=== PATIENT | female | born 1945 | race Two or more races ===

== ENCOUNTER 2017-05-17 18:57 | Emergency (ER) | payer MEDICARE, OTHER ==
[2017-05-17 19:22] VITALS: BP 130/99
--- NOTE | 2017-05-17 19:29 | EDM.PDOC ---
ED HPI GENERAL MEDICAL PROBLEM - General Chief Complaint: Gastrointestinal Problem Stated Complaint: DIARRHEA Time Seen by Provider: 05/17/17 19:15 Source of Information: Reports: Patient History Limitations: Reports: No Limitations - History of Present Illness INITIAL COMMENTS - FREE TEXT/NARRATIVE: 72 yo sent from the walk-in clinic to the ER for diarrhea x 5 today. No fever or vomiting. Not dizzy with standing. No pain. There was a small amt of blood in the stool once. No known exposures. Onset: Today Onset Date: 05/17/17 Onset Time: 09:00 Duration: Hour(s): Location: Reports: Abdomen Quality: Reports: Other (minimal cramping) Severity: Mild Improves with: Reports: None Worsens with: Reports: None Context: Reports: Other (Patient worried about food poisoning) Associated Symptoms: Denies: Fever/Chills, Nausea/Vomiting Treatments RESIDENTIAL DIRECT SUPPORT PROFESSIONAL: Reports: Other (see below) (none) Abdomen Pain Score (Numeric/FACES): 9 - Related Data Allergies Allergy/AdvReac Type Severity Reaction Status Date / Time No Known Allergies Allergy Verified 05/17/17 19:11 Home Meds: Home Meds Levothyroxine 75 mcg PO DAILY 02/12/14 [History] cycloSPORINE [Restasis] 1 drop EYEBOTH BID 02/12/14 [History] Albuterol Sulfate [Proair Hfa] 2 puff INH Q6HR PRN 04/29/16 [History] Cetirizine [ZyrTEC] 10 mg PO DAILY 04/29/16 [History] Docusate Sodium [Stool Softener] 100 mg PO DAILY PRN 04/29/16 [History] Fluticasone Propionate [Flovent] 1 sprays NASBOTH DAILY 04/29/16 [History] Fluticasone/Salmeterol [Advair 250-50 Diskus] 1 puff INH DAILY PRN 04/29/16 [ History] PHENobarbital [Phenobarbital] 100 mg PO BID 04/29/16 [History] Vit D 400 Units 400 units PO DAILY 04/29/16 [History] Betamethasone/Clotrimazole [Lotrisone] 15 gm TOP BID PRN 08/25/16 [History] LORazepam [Ativan] 1 mg PO Q6HR PRN #10 tablet 08/25/16 [Rx] Metoprolol Tartrate 12.5 mg PO BID 08/25/16 [History] Nitroglycerin 0.4 mg SL ASDIRECTED 08/25/16 [History] Triamcinolone Acetonide [Triamcinolone Acetonide 0.1% Crm] 1 applic TOP BID PRN 08/25/16 [History] atorvaSTATin Calcium [Atorvastatin Calcium] 20 mg PO DAILY 08/25/16 [History] Past Medical History HEENT History: Reports: Cataract, Impaired Vision Cardiovascular History: Reports: Hypertension, SOB on Exertion Respiratory History: Reports: Asthma 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: Musculoskeletal History: Reports: Arthritis, Fracture, RA Neurological History: Reports: Migraines, Seizure Psychiatric History: Reports: Depression Endocrine/Metabolic History: Reports: Hyperthyroidism, Osteopenia - Infectious Disease History Infectious Disease History: Reports: Measles, Shingles - Past Surgical History Female Surgical History: Reports: Hysterectomy, Salpingo-Oophorectomy Musculoskeletal Surgical History: Reports: Other (See Below) Social & Family History - Family History Family Medical History: Noncontributory - Tobacco Use Smoking Status *Q: Never Smoker Second Hand Smoke Exposure: No - Caffeine Use Caffeine Use: Reports: Coffee, Soda - Alcohol Use Days Per Week of Alcohol Use: 0 - Recreational Drug Use Recreational Drug Use: No ED ROS GENERAL - Review of Systems Review Of Systems: See Below Constitutional: Reports: No Symptoms HEENT: Reports: No Symptoms Respiratory: Reports: No Symptoms Cardiovascular: Reports: No Symptoms Endocrine: Reports: No Symptoms GI/Abdominal: Reports: Diarrhea, Hematochezia (minimal). Denies: Abdominal Pain , Anorexia, Black Stool, Bloody Stool, Constipation, Distension, Hematemesis, Melena, Nausea, Vomiting : Reports: No Symptoms Musculoskeletal: Reports: No Symptoms Skin: Reports: No Symptoms Neurological: Reports: No Symptoms Psychiatric: Reports: No Symptoms ED EXAM, GI/ABD - Physical Exam Exam: See Below Exam Limited By: No Limitations General Appearance: Alert, WD/WN, No Apparent Distress Eyes: Bilateral: Normal Appearance Ears: Normal External Exam, Normal Canal, Hearing Grossly Normal, Normal TMs Nose: Normal Inspection, Normal Mucosa, No Blood Throat/Mouth: Normal Inspection, Normal Lips, Normal Oropharynx, Normal Voice, No Airway Compromise Head: Atraumatic, Normocephalic Neck: Normal Inspection Respiratory/Chest: No Respiratory Distress, Lungs Clear, Normal Breath Sounds, No Accessory Muscle Use Cardiovascular: Regular Rate, Rhythm, No Edema GI/Abdominal Exam: Normal Bowel Sounds, Soft, Non-Tender, No Distention Back Exam: Normal Inspection. No: CVA Tenderness (R), CVA Tenderness (L) Extremities: Normal Inspection, Normal Range of Motion, Non-Tender, No Pedal Edema Neurological: Alert, Oriented, CN II-XII Intact, Normal Cognition, No Motor/ Sensory Deficits Psychiatric: Normal Affect, Normal Mood Skin Exam: Warm, Dry, Intact, Normal Color, No Rash Lymphatic: No Adenopathy Course - Vital Signs Text/Narrative:: Orthostats- Last Recorded V/S: Last Vital Signs Temp 36.7 C 05/17/17 19:20 Pulse 81 05/17/17 19:20 Resp 16 05/17/17 19:20 BP 130/99 H 05/17/17 19:20 Pulse Ox 100 05/17/17 19:20 Orthostatic Blood Pressure [ 143/84 Standing] Orthostatic Blood Pressure [ 148/84 Sitting] Orthostatic Blood Pressure [ 161/79 Supine] - Orders/Labs/Meds Orders: Active Orders 24 hr Category Date Time Status Orthostatic Vital Signs [RC] ASDIRECTED Care 05/17/17 19:18 Active CDIFF TOXIN A+B GROUP [OP] Stat Lab 05/17/17 20:12 Uncollected CULTURE-STOOL [MREF] Stat Lab 05/17/17 19:18 Uncollected Labs: Laboratory Tests 05/17/17 05/17/17 Range/Units 19:25 19:25 WBC 9.3 (4.5-12.0) X10-3/uL RBC 3.73 (3.23-5.20) x10(6)uL Hgb 12.5 (11.5-15.5) g/dL Hct 36.2 (30.0-51.3) % MCV 97.2 H (80-96) fL MCH 33.5 (27.7-33.6) pg MCHC 34.5 (32.2-35.4) g/dL RDW 13.8 (11.5-15.5) % Plt Count 308 (125-369) X10(3)uL Sodium 127 L (135-145) mmol/L Potassium 3.8 (3.5-5.3) mmol/L Chloride 95 L (100-110) mmol/L Carbon Dioxide 24 (23-29) mmol/L BUN 14 (8-23) mg/dL Creatinine 0.9 (0.6-1.3) mg/dL Est Cr Clr Drug Dosing 39.99 mL/min Estimated GFR (MDRD) > 60 (>60) BUN/Creatinine Ratio 15.6 (9-20) Glucose 104 (80-116) mg/dL Calcium 8.8 (8.6-10.2) mg/dL Total Bilirubin 0.8 (0.1-1.3) mg/dL AST 11 D (5-27) IU/L ALT 11 L (14-26) IU/L Alkaline Phosphatase 126 H (56-112) IU/L Total Protein 9.7 H (6.0-8.0) g/dL Albumin 3.8 (3.2-4.6) g/dL Globulin 5.9 g/dL Albumin/Globulin Ratio 0.6 Departure - Departure Time of Disposition: 20:15 Disposition: Home, Self-Care 01 Condition: Fair Clinical Impression: Diarrhea, Hyponatremia - Discharge Information Referrals: Jorden Tamayo MD [Primary Care Provider] - Forms: ED Department Discharge Additional Instructions: Return a stool specimen for culture as soon as possible. Drink Gatorade to replace fluids and sodium. Eat a BRAT diet. Take acetaminophen as needed for pain relief. Take Peptobismol as directed on the bottle for diarrhea control. Recheck in the clinic on Tuesday afternoon to review your stool culture results. Return if worse. - My Orders Last 24 Hours: My Active Orders 05/17/17 19:18 Orthostatic Vital Signs [RC] ASDIRECTED CULTURE-STOOL [MREF] Stat 05/17/17 20:12 CDIFF TOXIN A+B GROUP [OP] Stat - Assessment/Plan Last 24 Hours: My Active Orders 05/17/17 19:18 Orthostatic Vital Signs [RC] ASDIRECTED CULTURE-STOOL [MREF] Stat 05/17/17 20:12 CDIFF TOXIN A+B GROUP [OP] Stat
== END 2017-05-17 20:35 | disposition home or self-care (01) ==
LOC: FB.ED 18:57
DX: R19.7 Diarrhea, unspecified (principal); E87.1 Hypo-osmolality and hyponatremia; I10 Essential (primary) hypertension; E05.90 Thyrotoxicosis, unspecified without thyrotoxic crisis or storm; J45.909 Unspecified asthma, uncomplicated; Z90.710 Acquired absence of both cervix and uterus; Z79.899 Other long term (current) drug therapy
CPT/HCPCS: 36415; 80053; 85027; 99283

== ENCOUNTER 2018-11-11 16:00 | Observation (INO) | payer MEDICARE, OTHER ==
[2018-11-11] MEDS ORDERED: Pantoprazole 40 MG Vial IVPUSH ONE (16:05)
[2018-11-11] MEDS ORDERED: Ondansetron 4 MG/2 ML SDV IVPUSH ONE (16:05)
[2018-11-11] MEDS ORDERED: Sodium Chloride 0.9% 1,000 ML IV ONE (16:07)
--- NOTE | 2018-11-11 16:08 | EDM.PDOC ---
ED HPI GENERAL MEDICAL PROBLEM - General Stated Complaint: VOMITTING BLOOD Time Seen by Provider: 11/11/18 16:00 Source of Information: Reports: Patient, EMS, Family History Limitations: Reports: Physical Impairment - History of Present Illness INITIAL COMMENTS - FREE TEXT/NARRATIVE: 73 y.o.w.f with a H/O Sz, and CAD with pacemaker in place, came by EMS to the ED due to Nausea and vomiting of blood. Pt did not pass out but feels very weak. She denies Liver disease, denies PUD. Denies vomiting coffee ground material. No C/P no SOB. no other acute med. issues. BP 114/65 RR 18 Pulse ox 98 % on RA Temp 36.6 Pulse Onset Date: 11/11/18 Onset Time: 15:00 Duration: Hour(s): Location: Reports: Abdomen Quality: Reports: Dull Severity: Moderate Improves with: Reports: Rest Worsens with: Reports: Movement Context: Reports: Other Associated Symptoms: Reports: Malaise, Nausea/Vomiting, Weakness - Related Data Allergies Allergy/AdvReac Type Severity Reaction Status Date / Time No Known Allergies Allergy Verified 11/11/18 16:05 Home Meds: Home Meds Levothyroxine 75 mcg PO DAILY 02/12/14 [History] cycloSPORINE [Restasis] 1 drop EYEBOTH BID 02/12/14 [History] Albuterol Sulfate [Proair Hfa] 2 puff INH Q6HR PRN 04/29/16 [History] Cetirizine [ZyrTEC] 10 mg PO DAILY 04/29/16 [History] Fluticasone Propionate [Flovent] 1 sprays NASBOTH BID 04/29/16 [History] Fluticasone/Salmeterol [Advair 250-50 Diskus] 1 puff INH DAILY PRN 04/29/16 [ History] PHENobarbital [Phenobarbital] 100 mg PO BID 04/29/16 [History] Metoprolol Tartrate 12.5 mg PO BID 08/25/16 [History] Nitroglycerin 0.4 mg SL ASDIRECTED 08/25/16 [History] atorvaSTATin Calcium [Atorvastatin Calcium] 20 mg PO DAILY 08/25/16 [History] Acetaminophen [Tylenol Extra Strength] 1,000 mg pe PO QID PRN 11/11/18 [History] Aspirin [Halfprin] 81 mg PO DAILY 11/11/18 [History] Cholecalciferol (Vitamin D3) [Vitamin D3] 1,000 units PO DAILY 11/11/18 [History ] Escitalopram [Lexapro] 30 mg PO BEDTIME 11/11/18 [History] Multivitamin [Daily Multiple Vitamin] 1 each PO DAILY 11/11/18 [History] Naproxen 500 mg PO BID PRN 11/11/18 [History] amLODIPine [Norvasc] 10 mg PO DAILY 11/11/18 [History] levETIRAcetam [Keppra] 500 mg PO BID 11/11/18 [History] Past Medical History HEENT History: Reports: Cataract, Impaired Vision Cardiovascular History: Reports: Hypertension, SOB on Exertion Respiratory History: Reports: Asthma 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: Musculoskeletal History: Reports: Arthritis, Fracture, RA Neurological History: Reports: Migraines, Seizure Psychiatric History: Reports: Depression Endocrine/Metabolic History: Reports: Hyperthyroidism, Osteopenia - Infectious Disease History Infectious Disease History: Reports: Measles, Shingles - Past Surgical History Female Surgical History: Reports: Hysterectomy, Salpingo-Oophorectomy Musculoskeletal Surgical History: Reports: Other (See Below) Social & Family History - Family History Family Medical History: Noncontributory - Caffeine Use Caffeine Use: Reports: Coffee, Soda ED ROS GENERAL - Review of Systems Review Of Systems: See Below Constitutional: Reports: Weakness, Weight Loss HEENT: Reports: No Symptoms Respiratory: Reports: No Symptoms Cardiovascular: Reports: No Symptoms Endocrine: Reports: No Symptoms GI/Abdominal: Reports: Abdominal Pain, Decreased Appetite, Hematemesis, Nausea, Vomiting : Reports: No Symptoms Musculoskeletal: Reports: No Symptoms Skin: Reports: Pallor Neurological: Reports: No Symptoms Psychiatric: Reports: No Symptoms Hematologic/Lymphatic: Reports: No Symptoms Immunologic: Reports: No Symptoms ED EXAM, GI/ABD - Physical Exam Exam: See Below Exam Limited By: Physical Impairment General Appearance: Alert, Moderate Distress, Cachetic Eyes: Bilateral: Normal Appearance Ears: Normal External Exam Nose: Normal Inspection Throat/Mouth: Normal Lips, Normal Voice, No Airway Compromise Head: Atraumatic, Normocephalic Neck: Normal Inspection, Supple, Non-Tender, Full Range of Motion Respiratory/Chest: No Respiratory Distress, Lungs Clear, Normal Breath Sounds, No Accessory Muscle Use, Chest Non-Tender Cardiovascular: Regular Rate, Rhythm, No Edema, No Rub GI/Abdominal Exam: Normal Bowel Sounds, Tender (Female) Exam: Deferred Rectal (Female) Exam: Deferred Back Exam: Normal Inspection, Full Range of Motion Extremities: Normal Inspection, Normal Range of Motion, Non-Tender, No Pedal Edema Neurological: Alert, Oriented, CN II-XII Intact, Normal Cognition, Abnormal Gait (too weak ) Psychiatric: Normal Affect, Normal Mood Skin Exam: Warm, Dry, Intact, No Rash, Pallor Lymphatic: No Adenopathy Course - Vital Signs Text/Narrative:: 73 y.o.w.f with a H/O Sz, and CAD with pacemaker in place, came by EMS to the ED due to Nausea and vomiting of blood. Pt did not pass out but feels very weak. She denies Liver disease, denies PUD. Denies vomiting coffee ground material. No C/P no SOB. no other acute med. issues. BP 114/65 RR 18 Pulse ox 98 % on RA Temp 36.6 Pulse PE: Weak, cachectic and pale 73 y.o.w.f Imaging: Not indicated Labs; HGB 8.6 HCT 25.5 BUN 40 Cr 1.0 Impression: Upper GI bleed, Anemia, Cachexia, CAD Tx: NS, 2 IVs, Protonix, Zofran. 4.49 pm Consultation: Dr. Toussaint, Surgeon, will pt in the ED. Dr. Toussaint will perform an upper endoscopy. Reexam: improved Plan: Admit to M/S to Hospitalist, NPO for today, Protonix drip. Last Recorded V/S: Last Vital Signs Temp 36.8 C 11/12/18 16:37 Pulse 81 11/12/18 16:37 Resp 16 11/12/18 16:37 BP 124/66 11/12/18 16:37 Pulse Ox 95 11/12/18 16:00 - Orders/Labs/Meds Labs: Laboratory Tests 11/11/18 11/11/18 11/11/18 Range/Units 16:25 16:25 16:25 WBC 5.8 (4.5-12.0) X10-3/uL RBC 2.54 L (3.23-5.20) x10(6)uL Hgb 8.6 L (11.5-15.5) g/dL Hct 25.2 L D (30.0-51.3) % MCV 98.9 H (80-96) fL MCH 33.9 H (27.7-33.6) pg MCHC 34.2 (32.2-35.4) g/dL RDW 13.6 (11.5-15.5) % Plt Count 235 (125-369) X10(3)uL MPV 6.3 L (7.4-10.4) fL Neut % (Auto) 74.0 (46-82) % Lymph % (Auto) 17.6 (13-37) % Motley % (Auto) 7.2 (4-12) % Eos % (Auto) 1 (1.0-5.0) % Baso % (Auto) 0 (0-2) % Neut # (Auto) 4.3 (1.6-8.3) # Lymph # (Auto) 1.0 (0.6-5.0) # Motley # (Auto) 0.4 (0.0-1.3) # Eos # (Auto) 0.1 (0.0-0.8) # Baso # (Auto) 0.0 (0.0-0.2) # PT 10.1 (8.7-11.1) INR 1.04 (0.89-1.13) Sodium 136 (135-145) mmol/L Potassium 4.1 (3.5-5.3) mmol/L Chloride 102 (100-110) mmol/L Carbon Dioxide 25 (21-32) mmol/L BUN 40 H (7-18) mg/dL Creatinine 1.0 (0.55-1.02) mg/dL Est Cr Clr Drug Dosing 35.45 mL/min Estimated GFR (MDRD) 54 L (>60) BUN/Creatinine Ratio 40.0 H (9-20) Glucose 90 (80-116) mg/dL Calcium 8.2 L (8.6-10.2) mg/dL Total Bilirubin 0.3 (0.1-1.3) mg/dL Direct Bilirubin 0.10 (0.10-0.20) mg/dL AST 43 H (5-25) IU/L ALT 34 (12-36) U/L Alkaline Phosphatase 105 (56-112) IU/L Total Protein 7.6 (6.0-8.0) g/dL Albumin 2.9 L (3.2-4.6) g/dL Amylase 99 (25-115) U/L Blood Type Gel Antibody Screen Crossmatch 11/11/18 Range/Units 16:25 WBC (4.5-12.0) X10-3/uL RBC (3.23-5.20) x10(6)uL Hgb (11.5-15.5) g/dL Hct (30.0-51.3) % MCV (80-96) fL MCH (27.7-33.6) pg MCHC (32.2-35.4) g/dL RDW (11.5-15.5) % Plt Count (125-369) X10(3)uL MPV (7.4-10.4) fL Neut % (Auto) (46-82) % Lymph % (Auto) (13-37) % Motley % (Auto) (4-12) % Eos % (Auto) (1.0-5.0) % Baso % (Auto) (0-2) % Neut # (Auto) (1.6-8.3) # Lymph # (Auto) (0.6-5.0) # Motley # (Auto) (0.0-1.3) # Eos # (Auto) (0.0-0.8) # Baso # (Auto) (0.0-0.2) # PT (8.7-11.1) INR (0.89-1.13) Sodium (135-145) mmol/L Potassium (3.5-5.3) mmol/L Chloride (100-110) mmol/L Carbon Dioxide (21-32) mmol/L BUN (7-18) mg/dL Creatinine (0.55-1.02) mg/dL Est Cr Clr Drug Dosing mL/min Estimated GFR (MDRD) (>60) BUN/Creatinine Ratio (9-20) Glucose (80-116) mg/dL Calcium (8.6-10.2) mg/dL Total Bilirubin (0.1-1.3) mg/dL Direct Bilirubin (0.10-0.20) mg/dL AST (5-25) IU/L ALT (12-36) U/L Alkaline Phosphatase (56-112) IU/L Total Protein (6.0-8.0) g/dL Albumin (3.2-4.6) g/dL Amylase (25-115) U/L Blood Type B POSITIVE Gel Antibody Screen Negative Crossmatch See Detail Meds: Medications Discontinued Medications Generic Name Dose Route Start Last Admin Trade Name Freq PRN Reason Stop Dose Admin Acetaminophen 1,000 mg 11/12/18 02:28 11/12/18 02:47 Tylenol Extra Strength PO 1,000 mg QID PRN Administration Headache Albuterol 0 gm 11/11/18 20:51 Ventolin Hfa INH Q6H PRN wheezing and SOB Amlodipine Besylate 10 mg 11/12/18 09:00 Norvasc PO DAILY NAYE Amlodipine Besylate 10 mg 11/12/18 09:45 11/12/18 09:48 Norvasc PO 10 mg DAILY NAYE Administration Atorvastatin Calcium 20 mg 11/12/18 09:00 11/12/18 09:52 Lipitor PO Not Given DAILY NAYE Cetirizine HCl 10 mg 11/12/18 09:00 11/12/18 09:48 Zyrtec PO 10 mg DAILY NAYE Administration Cholecalciferol 1,000 units 11/12/18 09:00 11/12/18 09:47 Vitamin D3 PO 1,000 units DAILY NAYE Administration Cyclosporine 0 each 11/11/18 21:00 11/12/18 09:52 Restasis EYEBOTH Not Given BID NAYE Escitalopram Oxalate 30 mg 11/11/18 21:00 11/11/18 21:40 Lexapro PO 30 mg BEDTIME NAYE Administration Fluticasone Propionate 0 gm 11/12/18 09:00 11/12/18 09:43 Flonase NASBOTH 2 spray DAILY NAYE Administration Sodium Chloride 1,000 mls @ 999 mls/hr 11/11/18 16:07 11/11/18 16:17 Normal Saline IV 11/11/18 17:07 999 mls/hr .BOLUS ONE Administration Lactated Ringer's 1,000 mls @ 125 mls/hr 11/11/18 17:30 11/11/18 17:32 Ringers, Lactated IV 125 mls/hr ASDIRECTED NAYE Administration Lactated Ringer's 1,000 mls @ 125 mls/hr 11/11/18 17:30 11/12/18 02:48 Ringers, Lactated IV 125 mls/hr ASDIRECTED NAYE Administration Pantoprazole Sodium 80 mg/ 100 mls @ 10 mls/hr 11/11/18 18:30 11/11/18 19:58 Sodium Chloride IV 10 mls/hr .Continuous NAYE Administration Sodium Chloride 250 mls @ 100 mls/hr 11/12/18 09:00 11/12/18 13:45 Normal Saline IV 100 mls/hr ASDIRECTED NAYE Administration Levetiracetam 500 mg 11/11/18 21:00 11/12/18 09:45 Keppra PO 500 mg BID NAYE Administration Levothyroxine Sodium 75 mcg 11/12/18 07:30 11/12/18 09:43 Levothyroxine PO 75 mcg ACBREAKFAST NAYE Administration Metoprolol Tartrate 12.5 mg 11/11/18 21:00 11/12/18 09:46 Lopressor PO 12.5 mg BID NAYE Administration Multivitamins/Minerals/Vitamin C 1 tab 11/12/18 09:00 Tab-A-Renee PO DAILY NAYE Non-Formulary Medication 1 sprays 11/11/18 21:00 11/11/18 22:13 Fluticasone Propionate [Flovent] NASBOTH Not Given BID NAYE Non-Formulary Medication 1 puff 11/11/18 20:51 Fluticasone/Salmeterol [Advair 250-50 Diskus] INH DAILY PRN Shortness of Breath Non-Formulary Medication 100 mg 11/11/18 21:00 11/11/18 22:13 Phenobarbital [Phenobarbital] PO Not Given BID NAYE Non-Formulary Medication 2 sprays 11/12/18 09:00 Fluticasone Propionate [Flovent] NASBOTH DAILY NAYE Phenobarbital 100 Mg 100 mg 11/11/18 21:45 11/12/18 09:47 TabOwn Med PO 100 mg BID NAYE Administration Centrum SilverOwn 1 each 11/12/18 09:45 11/12/18 09:48 Med PO 1 each DAILY NAYE Administration Ondansetron HCl 8 mg 11/11/18 16:05 11/11/18 16:21 Zofran IVPUSH 11/11/18 16:06 8 mg ONETIME ONE Administration Ondansetron HCl 8 mg 11/11/18 18:31 Zofran IV Q6H PRN Nausea/Vomiting Pantoprazole Sodium 80 mg 11/11/18 16:05 11/11/18 16:27 Protonix Iv IVPUSH 11/11/18 16:06 80 mg .BOLUS ONE Administration Phenobarbital 100 mg 11/11/18 21:15 11/11/18 22:13 Phenobarbital Elixir PO Not Given BID NAYE Sodium Chloride 10 ml 11/11/18 16:11 11/11/18 16:14 Saline Flush FLUSH 10 ml ASDIRECTED PRN Administration Keep Vein Open Departure - Departure Time of Disposition: 19:00 Disposition: Refer to Observation Condition: Fair Clinical Impression: PUD (peptic ulcer disease) - Discharge Information
[2018-11-11] MEDS ORDERED: Sodium Chloride 0.9% 10 ML Syringe FLUSH PRN (16:11)
--- NOTE | 2018-11-11 17:07 | PCM.CONS ---
H&P History of Present Illness - General Date of Service: 11/11/18 - History of Present Illness Initial Comments - Free Text/Narative: 73 yo f who was brought in by ems. had an episode of bloody emesis. No other sx. Hgb 8.9. Apparently has a hx of an upper gi bleeding in the past. - Related Data Allergies/Adverse Reactions: Allergies Allergy/AdvReac Type Severity Reaction Status Date / Time No Known Allergies Allergy Verified 11/11/18 16:05 Home Medications: Home Meds Levothyroxine 75 mcg PO DAILY 02/12/14 [History] cycloSPORINE [Restasis] 1 drop EYEBOTH BID 02/12/14 [History] Albuterol Sulfate [Proair Hfa] 2 puff INH Q6HR PRN 04/29/16 [History] Cetirizine [ZyrTEC] 10 mg PO DAILY 04/29/16 [History] Docusate Sodium [Stool Softener] 100 mg PO DAILY PRN 04/29/16 [History] Fluticasone Propionate [Flovent] 1 sprays NASBOTH DAILY 04/29/16 [History] Fluticasone/Salmeterol [Advair 250-50 Diskus] 1 puff INH DAILY PRN 04/29/16 [ History] PHENobarbital [Phenobarbital] 100 mg PO BID 04/29/16 [History] Vit D 400 Units 400 units PO DAILY 04/29/16 [History] Betamethasone/Clotrimazole [Lotrisone] 15 gm TOP BID PRN 08/25/16 [History] LORazepam [Ativan] 1 mg PO Q6HR PRN #10 tablet 08/25/16 [Rx] Metoprolol Tartrate 12.5 mg PO BID 08/25/16 [History] Nitroglycerin 0.4 mg SL ASDIRECTED 08/25/16 [History] Triamcinolone Acetonide [Triamcinolone Acetonide 0.1% Crm] 1 applic TOP BID PRN 08/25/16 [History] atorvaSTATin Calcium [Atorvastatin Calcium] 20 mg PO DAILY 08/25/16 [History] Past Medical History HEENT History: Reports: Cataract, Impaired Vision Cardiovascular History: Reports: CAD, Hypertension, SOB on Exertion Respiratory History: Reports: Asthma 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: Musculoskeletal History: Reports: Arthritis, Fracture, RA Neurological History: Reports: Migraines, Seizure Psychiatric History: Reports: Depression Endocrine/Metabolic History: Reports: Hyperthyroidism, Osteopenia - Infectious Disease History Infectious Disease History: Reports: Measles, Shingles - Past Surgical History Female Surgical History: Reports: Hysterectomy, Salpingo-Oophorectomy Musculoskeletal Surgical History: Reports: Other (See Below) Social & Family History - Family History Family Medical History: Noncontributory - Caffeine Use Caffeine Use: Reports: Coffee, Soda H&P Review of Systems - Review of Systems: Review Of Systems: See Below General: Reports: No Symptoms Pulmonary: Reports: No Symptoms Cardiovascular: Reports: No Symptoms Gastrointestinal: Reports: Hematemesis Genitourinary: Reports: No Symptoms Musculoskeletal: Reports: No Symptoms Exam - Exam Exam: See Below - Vital Signs Vital Signs: Last Vital Signs Temp 97.6 F 11/11/18 16:00 Pulse 90 11/11/18 16:00 Resp 18 11/11/18 16:00 BP 114/65 11/11/18 16:00 Pulse Ox 98 11/11/18 16:00 Weight: 61.235 kg - Exam General: Alert, Oriented, Cooperative. No: Mild Distress Lungs: Clear to Auscultation, Normal Respiratory Effort Cardiovascular: Regular Rate, Regular Rhythm GI/Abdominal Exam: Normal Bowel Sounds, Soft, Non-Tender - Patient Data Lab Results Last 24 hrs: Laboratory Results - last 24 hr 11/11/18 11/11/18 11/11/18 Range/Units 16:25 16:25 16:25 WBC 5.8 (4.5-12.0) X10-3/uL RBC 2.54 L (3.23-5.20) x10(6)uL Hgb 8.6 L (11.5-15.5) g/dL Hct 25.2 L D (30.0-51.3) % MCV 98.9 H (80-96) fL MCH 33.9 H (27.7-33.6) pg MCHC 34.2 (32.2-35.4) g/dL RDW 13.6 (11.5-15.5) % Plt Count 235 (125-369) X10(3)uL MPV 6.3 L (7.4-10.4) fL Neut % (Auto) 74.0 (46-82) % Lymph % (Auto) 17.6 (13-37) % [place] % (Auto) 7.2 (4-12) % Eos % (Auto) 1 (1.0-5.0) % Baso % (Auto) 0 (0-2) % Neut # (Auto) 4.3 (1.6-8.3) # Lymph # (Auto) 1.0 (0.6-5.0) # [place] # (Auto) 0.4 (0.0-1.3) # Eos # (Auto) 0.1 (0.0-0.8) # Baso # (Auto) 0.0 (0.0-0.2) # PT 10.1 (8.7-11.1) INR 1.04 (0.89-1.13) Sodium 136 (135-145) mmol/L Potassium 4.1 (3.5-5.3) mmol/L Chloride 102 (100-110) mmol/L Carbon Dioxide 25 (21-32) mmol/L BUN 40 H (7-18) mg/dL Creatinine 1.0 (0.55-1.02) mg/dL Est Cr Clr Drug Dosing 35.45 mL/min Estimated GFR (MDRD) 54 L (>60) BUN/Creatinine Ratio 40.0 H (9-20) Glucose 90 (80-116) mg/dL Calcium 8.2 L (8.6-10.2) mg/dL Total Bilirubin 0.3 (0.1-1.3) mg/dL Direct Bilirubin 0.10 (0.10-0.20) mg/dL AST 43 H (5-25) IU/L ALT 34 (12-36) U/L Alkaline Phosphatase 105 (56-112) IU/L Total Protein 7.6 (6.0-8.0) g/dL Albumin 2.9 L (3.2-4.6) g/dL Amylase 99 (25-115) U/L Result Diagrams: 11/11/18 16:25 11/11/18 16:25 Consult PN Assessment/Plan Procedures: Procedures AGENT NOS ASSAY W/OPTIC (05/20/17) AIRWAY INHALATION TREATMENT (04/29/16) ANTERIOR COLPORRHAPHY (02/13/14) ASSAY OF CK (CPK) (04/29/16) ASSAY OF NATRIURETIC PEPTIDE (04/29/16) ASSAY OF TROPONIN QUANT (08/25/16) BLOOD CULTURE FOR BACTERIA (04/29/16) CHEST X-RAY 2VW FRONTAL&LATL (12/02/14) COMPLETE CBC AUTOMATED (05/17/17) COMPLETE CBC W/AUTO DIFF WBC (08/25/16) COMPREHEN METABOLIC PANEL (05/17/17) CREATINE MB FRACTION (04/29/16) CT HEAD/BRAIN W/O & W/DYE (04/26/16) CT THORAX W/DYE (01/11/17) DXA BONE DENSITY AXIAL (10/18/16) ELECTROCARDIOGRAM TRACING (08/25/16) EMERGENCY DEPT VISIT (05/17/17) EMERGENCY DEPT VISIT (08/25/16) EMERGENCY DEPT VISIT (12/02/14) FECES CULTURE AEROBIC BACT (05/20/17) HYDRATE IV INFUSION ADD-ON (08/25/16) METABOLIC PANEL TOTAL CA (04/29/16) MICROBE SUSCEPTIBLE JORGE (04/29/16) ROUTINE VENIPUNCTURE (05/17/17) SPECIMEN INFECT AGNT CONCNTJ (05/20/17) STOOL CULTR AEROBIC BACT EA (05/20/17) THER/PROPH/DIAG INJ IV PUSH (08/25/16) THER/PROPH/DIAG INJ SC/IM (04/29/16) THER/PROPH/DIAG IV INF INIT (04/29/16) TISSUE EXAM BY PATHOLOGIST (02/13/14) URINALYSIS AUTO W/SCOPE (08/25/16) URINE BACTERIA CULTURE (04/29/16) URINE CULTURE/COLONY COUNT (04/29/16) Problem List Initiated/Reviewed/Updated: Yes Plan: as has not eaten and is stable will proceed with an egd procedure and risks explained to the pt to include bleeding, infection perforation. She expressed understanding and asks us to proceed.
[2018-11-11] MEDS ORDERED: Lactated Ringers 1,000 ML IV SCH (17:30)
[2018-11-11] MEDS ORDERED: Midazolam 1 MG/ML 2 ML SDV IV ONE (17:42)
[2018-11-11] MEDS ORDERED: Propofol 200 MG/20 ML SDV IV ONE (17:42)
[2018-11-11] MEDS ORDERED: Lidocaine 2% 100 MG/5 ML Syringe IVPUSH ONE (17:42)
--- NOTE | 2018-11-11 18:11 | PCM.OPNOTE ---
- General Post-Op/Procedure Note Date of Surgery/Procedure: 11/11/18 Operative Procedure(s): egd with bx and clip application Findings: ulcer along the lesser curve Pre Op Diagnosis: hematemasis Post-Op Diagnosis: ulcer along the lesser curve Anesthesia Technique: MAC Primary Surgeon: Uriah Toussaint Anesthesia Provider: Lori Yo Pathology: ulcer edge Complications: none Condition: Good Free Text/Narrative:: clips applied along the base of the ulcer x3 see dictation
[2018-11-11] MEDS ORDERED: Pantoprazole 80 MG in Sodium Chloride 0.9% 100 ML IV SCH (18:30)
[2018-11-11] MEDS ORDERED: Ondansetron 4 MG/2 ML SDV IV PRN (18:31)
[2018-11-11] MEDS: Lactated Ringers 1,000 ML IV SCH (19:11)
[2018-11-11] MEDS ORDERED: Albuterol 8 GM Inhaler INH PRN (20:51)
[2018-11-11] MEDS ORDERED: Non-Formulary Medication 1 Each (Fluticasone/Salmeterol [Advair 250-50 Diskus] 1 PUFF) INH PRN (20:51)
[2018-11-11] MEDS ORDERED: FLUTICASONE PROPIONATE NASBOTH SCH (21:00)
[2018-11-11] MEDS ORDERED: PHENOBARBITAL 100 MG PO SCH (21:00)
[2018-11-11] MEDS ORDERED: PHENobarbital 20 MG/5 ML Elixir ML (473 ML Bottle) PO SCH (21:15)
[2018-11-11] MEDS: cycloSPORINE Ophth Drops U/D Box of 30 EYEBOTH SCH (21:39)
[2018-11-11] MEDS: levETIRAcetam 500 MG Tab**OWN MED PO SCH (21:40)
[2018-11-11] MEDS: Metoprolol Tartrate 25 MG Tab**OWN MED PO SCH (21:40)
[2018-11-11] MEDS: PHENOBARBITAL 100 MG PO SCH (21:49)
[2018-11-12] MEDS ORDERED: Acetaminophen 500 MG Tab PO PRN (02:28)
[2018-11-12] MEDS: Lactated Ringers 1,000 ML IV SCH (02:48)
[2018-11-12] MEDS ORDERED: Levothyroxine 75 MCG Tab**OWN MED PO SCH (07:30)
--- NOTE | 2018-11-12 08:48 | PCM.SURGPN ---
- General Info Date of Service: 11/12/18 POD#: 1 Functional Status: Reports: Tolerating Diet - Review of Systems Gastrointestinal: Denies: Nausea, Vomiting - Patient Data Vitals - Most Recent: Last Vital Signs Temp 98 F 11/12/18 07:57 Pulse 88 11/12/18 07:57 Resp 16 11/12/18 07:57 BP 133/69 11/12/18 07:57 Pulse Ox 95 11/12/18 07:57 Weight - Most Recent: 59.783 kg I&O - Last 24 Hours: Intake & Output 11/11/18 11/12/18 11/12/18 22:59 06:59 14:59 Intake Total 464 1238 Output Total 1550 1050 Balance -1086 188 Lab Results Last 24 Hrs: Laboratory Results - last 24 hr 11/11/18 11/11/18 11/11/18 Range/Units 16:25 16:25 16:25 WBC 5.8 (4.5-12.0) X10-3/uL RBC 2.54 L (3.23-5.20) x10(6)uL Hgb 8.6 L (11.5-15.5) g/dL Hct 25.2 L D (30.0-51.3) % MCV 98.9 H (80-96) fL MCH 33.9 H (27.7-33.6) pg MCHC 34.2 (32.2-35.4) g/dL RDW 13.6 (11.5-15.5) % Plt Count 235 (125-369) X10(3)uL MPV 6.3 L (7.4-10.4) fL Neut % (Auto) 74.0 (46-82) % Lymph % (Auto) 17.6 (13-37) % [place] % (Auto) 7.2 (4-12) % Eos % (Auto) 1 (1.0-5.0) % Baso % (Auto) 0 (0-2) % Neut # (Auto) 4.3 (1.6-8.3) # Lymph # (Auto) 1.0 (0.6-5.0) # [place] # (Auto) 0.4 (0.0-1.3) # Eos # (Auto) 0.1 (0.0-0.8) # Baso # (Auto) 0.0 (0.0-0.2) # PT 10.1 (8.7-11.1) INR 1.04 (0.89-1.13) Sodium 136 (135-145) mmol/L Potassium 4.1 (3.5-5.3) mmol/L Chloride 102 (100-110) mmol/L Carbon Dioxide 25 (21-32) mmol/L BUN 40 H (7-18) mg/dL Creatinine 1.0 (0.55-1.02) mg/dL Est Cr Clr Drug Dosing 35.45 mL/min Estimated GFR (MDRD) 54 L (>60) BUN/Creatinine Ratio 40.0 H (9-20) Glucose 90 (80-116) mg/dL Calcium 8.2 L (8.6-10.2) mg/dL Total Bilirubin 0.3 (0.1-1.3) mg/dL Direct Bilirubin 0.10 (0.10-0.20) mg/dL AST 43 H (5-25) IU/L ALT 34 (12-36) U/L Alkaline Phosphatase 105 (56-112) IU/L Total Protein 7.6 (6.0-8.0) g/dL Albumin 2.9 L (3.2-4.6) g/dL Amylase 99 (25-115) U/L Blood Type Gel Antibody Screen 11/11/18 11/12/18 Range/Units 16:25 08:30 WBC 4.6 (4.5-12.0) X10-3/uL RBC 2.21 L (3.23-5.20) x10(6)uL Hgb 7.5 L (11.5-15.5) g/dL Hct 21.9 L* (30.0-51.3) % MCV 99.3 H (80-96) fL MCH 34.0 H (27.7-33.6) pg MCHC 34.3 (32.2-35.4) g/dL RDW 13.5 (11.5-15.5) % Plt Count 233 (125-369) X10(3)uL MPV 5.7 L (7.4-10.4) fL Neut % (Auto) 54.9 (46-82) % Lymph % (Auto) 34.7 (13-37) % [place] % (Auto) 9.1 (4-12) % Eos % (Auto) 1 (1.0-5.0) % Baso % (Auto) 0 (0-2) % Neut # (Auto) 2.6 (1.6-8.3) # Lymph # (Auto) 1.6 (0.6-5.0) # [place] # (Auto) 0.4 (0.0-1.3) # Eos # (Auto) 0.0 (0.0-0.8) # Baso # (Auto) 0.0 (0.0-0.2) # PT (8.7-11.1) INR (0.89-1.13) Sodium (135-145) mmol/L Potassium (3.5-5.3) mmol/L Chloride (100-110) mmol/L Carbon Dioxide (21-32) mmol/L BUN (7-18) mg/dL Creatinine (0.55-1.02) mg/dL Est Cr Clr Drug Dosing mL/min Estimated GFR (MDRD) (>60) BUN/Creatinine Ratio (9-20) Glucose (80-116) mg/dL Calcium (8.6-10.2) mg/dL Total Bilirubin (0.1-1.3) mg/dL Direct Bilirubin (0.10-0.20) mg/dL AST (5-25) IU/L ALT (12-36) U/L Alkaline Phosphatase (56-112) IU/L Total Protein (6.0-8.0) g/dL Albumin (3.2-4.6) g/dL Amylase (25-115) U/L Blood Type B POSITIVE Gel Antibody Screen Negative Med Orders - Current: Current Medications Acetaminophen (Tylenol Extra Strength) 1,000 mg PO QID PRN PRN Reason: Headache Last Admin: 11/12/18 02:47 Dose: 1,000 mg Albuterol (Ventolin Hfa) 0 gm INH Q6H PRN PRN Reason: wheezing and SOB Amlodipine Besylate (Norvasc) 10 mg PO DAILY [facility] Atorvastatin Calcium (Lipitor) 20 mg PO DAILY [facility] Cetirizine HCl (Zyrtec) 10 mg PO DAILY [facility] Cholecalciferol (Vitamin D3) 1,000 units PO DAILY [facility] Cyclosporine (Restasis) 0 each EYEBOTH BID [facility] Last Admin: 11/11/18 21:39 Dose: Not Given Escitalopram Oxalate (Lexapro) 30 mg PO BEDTIME [facility] Last Admin: 11/11/18 21:40 Dose: 30 mg Fluticasone Propionate (Flonase) 0 gm NASBOTH DAILY [facility] Lactated Ringer's (Ringers, Lactated) 1,000 mls @ 125 mls/hr IV ASDIRECTED [facility] Last Admin: 11/12/18 02:48 Dose: 125 mls/hr Pantoprazole Sodium 80 mg/ (Sodium Chloride) 100 mls @ 10 mls/hr IV .Continuous [facility] Last Admin: 11/11/18 19:58 Dose: 10 mls/hr Levetiracetam (Keppra) 500 mg PO BID [facility] Last Admin: 11/11/18 21:40 Dose: 500 mg Levothyroxine Sodium (Levothyroxine) 75 mcg PO ACBREAKFAST [facility] Metoprolol Tartrate (Lopressor) 12.5 mg PO BID [facility] Last Admin: 11/11/18 21:40 Dose: 12.5 mg Multivitamins/Minerals/Vitamin C (Tab-A-Renee) 1 tab PO DAILY [facility] Phenobarbital 100 Mg (TabOwn Med) 100 mg PO BID [facility] Last Admin: 11/11/18 21:49 Dose: 100 mg Ondansetron HCl (Zofran) 8 mg IV Q6H PRN PRN Reason: Nausea/Vomiting Sodium Chloride (Saline Flush) 10 ml FLUSH ASDIRECTED PRN PRN Reason: Keep Vein Open Last Admin: 11/11/18 16:14 Dose: 10 ml Discontinued Medications Sodium Chloride (Normal Saline) 1,000 mls @ 999 mls/hr IV .BOLUS ONE Stop: 11/11/18 17:07 Last Admin: 11/11/18 16:17 Dose: 999 mls/hr Lactated Ringer's (Ringers, Lactated) 1,000 mls @ 125 mls/hr IV ASDIRECTED [facility] Last Admin: 11/11/18 17:32 Dose: 125 mls/hr Non-Formulary Medication (Fluticasone Propionate [Flovent]) 1 sprays NASBOTH BID [facility] Last Admin: 11/11/18 22:13 Dose: Not Given Non-Formulary Medication (Fluticasone/Salmeterol [Advair 250-50 Diskus]) 1 puff INH DAILY PRN PRN Reason: Shortness of Breath Non-Formulary Medication (Phenobarbital [Phenobarbital]) 100 mg PO BID [facility] Last Admin: 11/11/18 22:13 Dose: Not Given Non-Formulary Medication (Fluticasone Propionate [Flovent]) 2 sprays NASBOTH DAILY [facility] Ondansetron HCl (Zofran) 8 mg IVPUSH ONETIME ONE Stop: 11/11/18 16:06 Last Admin: 11/11/18 16:21 Dose: 8 mg Pantoprazole Sodium (Protonix Iv) 80 mg IVPUSH .BOLUS ONE Stop: 11/11/18 16:06 Last Admin: 11/11/18 16:27 Dose: 80 mg Phenobarbital (Phenobarbital Elixir) 100 mg PO BID [facility] Last Admin: 11/11/18 22:13 Dose: Not Given - Exam General: Alert, Cooperative Lungs: Clear to Auscultation, Normal Respiratory Effort Cardiovascular: Regular Rate, Regular Rhythm GI/Abdominal Exam: Normal Bowel Sounds, Soft, Non-Tender - Problem List & Annotations (1) Gastric ulcer SNOMED Code(s): 879730237 Code(s): K25.9 - GASTRIC ULCER, UNSP ACUTE OR CHRONIC, W/O HEMOR OR PERF Status: Acute Current Visit: Yes Qualifiers: Gastric ulcer chronicity: acute Gastric ulcer complication status: with hemorrhage Qualified Code(s): K25.0 - Acute gastric ulcer with hemorrhage - Problem List Review Problem List Initiated/Reviewed/Updated: Yes - My Orders Last 24 Hours: Active Orders 24 hr Category Date Time Status Patient Status [ADT] Routine ADT 11/11/18 18:33 Active Oxygen Therapy [RC] PRN Care 11/11/18 18:33 Active Up With Assistance [RC] ASDIRECTED Care 11/11/18 18:31 Active Vital Signs [RC] Q4H Care 11/11/18 18:33 Active Regular Diet [DIET] Diet 11/12/18 Breakfast Active Acetaminophen [Tylenol Extra Strength] Med 11/12/18 02:28 Active 1,000 mg PO QID PRN Albuterol [Ventolin HFA] Med 11/11/18 20:51 Active 0 gm INH Q6H PRN Cetirizine [ZyrTEC] Med 11/12/18 09:00 Active 10 mg PO DAILY Cholecalciferol (Vitamin D3) [Vitamin D3] Med 11/12/18 09:00 Active 1,000 units PO DAILY Escitalopram [Lexapro] Med 11/11/18 21:00 Active 30 mg PO BEDTIME Fluticasone Propionate [Flonase] Med 11/12/18 09:00 Active 0 gm NASBOTH DAILY Lactated Ringers [Ringers, Lactated] 1,000 ml Med 11/11/18 17:30 Active IV ASDIRECTED Levothyroxine Med 11/12/18 07:30 Active 75 mcg PO ACBREAKFAST Metoprolol Tartrate [Lopressor] Med 11/11/18 21:00 Active 12.5 mg PO BID Multivitamins [Tab-A-Renee] Med 11/12/18 09:00 Active 1 tab PO DAILY Ondansetron [Zofran] Med 11/11/18 18:31 Active 8 mg IV Q6H PRN Pantoprazole [ProTONIX IV] 80 mg Med 11/11/18 18:30 Active Sodium Chloride 0.9% [Normal Saline] 100 ml IV .Continuous Phenobarbital [Phenobarbital] Med 11/11/18 21:45 Active 100 mg PO BID Sodium Chloride 0.9% [Saline Flush] Med 11/11/18 16:11 Active 10 ml FLUSH ASDIRECTED PRN amLODIPine [Norvasc] Med 11/12/18 09:00 Active 10 mg PO DAILY atorvaSTATin [Lipitor] Med 11/12/18 09:00 Active 20 mg PO DAILY cycloSPORINE [Restasis] Med 11/11/18 21:00 Active 0 each EYEBOTH BID levETIRAcetam [Keppra] Med 11/11/18 21:00 Active 500 mg PO BID Peripheral IV Insertion Adult [OM.PC] Routine Oth 11/11/18 16:11 Ordered Resuscitation Status Routine Resus Stat 11/11/18 17:24 Ordered Medication Orders Acetaminophen (Tylenol Extra Strength) 1,000 mg PO QID PRN PRN Reason: Headache Last Admin: 11/12/18 02:47 Dose: 1,000 mg Albuterol (Ventolin Hfa) 0 gm INH Q6H PRN PRN Reason: wheezing and SOB Amlodipine Besylate (Norvasc) 10 mg PO DAILY [facility] Atorvastatin Calcium (Lipitor) 20 mg PO DAILY [facility] Cetirizine HCl (Zyrtec) 10 mg PO DAILY [facility] Cholecalciferol (Vitamin D3) 1,000 units PO DAILY [facility] Cyclosporine (Restasis) 0 each EYEBOTH BID [facility] Last Admin: 11/11/18 21:39 Dose: Escitalopram Oxalate (Lexapro) 30 mg PO BEDTIME [facility] Last Admin: 11/11/18 21:40 Dose: 30 mg Fluticasone Propionate (Flonase) 0 gm NASBOTH DAILY [facility] Lactated Ringer's (Ringers, Lactated) 1,000 mls @ 125 mls/hr IV ASDIRECTED [facility] Last Admin: 11/12/18 02:48 Dose: 125 mls/hr Infusion: 11/12/18 02:48 Dose: 125 mls/hr Admin: 11/11/18 19:11 Dose: 125 mls/hr Pantoprazole Sodium 80 mg/ (Sodium Chloride) 100 mls @ 10 mls/hr IV .Continuous [facility] Last Admin: 11/11/18 19:58 Dose: 10 mls/hr Levetiracetam (Keppra) 500 mg PO BID [facility] Last Admin: 11/11/18 21:40 Dose: 500 mg Levothyroxine Sodium (Levothyroxine) 75 mcg PO ACBREAKFAST [facility] Metoprolol Tartrate (Lopressor) 12.5 mg PO BID [facility] Last Admin: 11/11/18 21:40 Dose: 12.5 mg Multivitamins/Minerals/Vitamin C (Tab-A-Renee) 1 tab PO DAILY [facility] Phenobarbital 100 Mg (TabOwn Med) 100 mg PO BID [facility] Last Admin: 11/11/18 21:49 Dose: 100 mg Ondansetron HCl (Zofran) 8 mg IV Q6H PRN PRN Reason: Nausea/Vomiting Sodium Chloride (Saline Flush) 10 ml FLUSH ASDIRECTED PRN PRN Reason: Keep Vein Open Last Admin: 11/11/18 16:14 Dose: 10 ml - Assessment Assessment (Free Text/Narrative):: stable exam - Plan Plan (Free Text/Narrative):: If maintains Hgb could go home on Iron. Will need a repeat egd in 4-6 wks. would maintain a ppi.
[2018-11-12] MEDS ORDERED: Multivitamin Tab PO SCH (09:00)
[2018-11-12] MEDS ORDERED: FLUTICASONE PROPIONATE NASBOTH SCH ×2 (09:00)
[2018-11-12] MEDS ORDERED: Cholecalciferol (Vitamin D3) 1,000 Unit Tab**OWN MED PO SCH (09:00)
[2018-11-12] MEDS ORDERED: atorvaSTATin 40 MG Tab PO SCH (09:00)
[2018-11-12] MEDS ORDERED: amLODIPine 5 MG Tab PO SCH (09:00)
[2018-11-12] MEDS ORDERED: CETIRIZINE 10 MG PO SCH (09:00)
--- NOTE | 2018-11-12 09:05 | PCM.HP ---
H&P History of Present Illness - General Date of Service: 11/12/18 Admit Problem/Dx: Admission Diagnosis/Problem Admission Diagnosis/Problem Peptic ulcer of stomach Source of Information: Patient, Old Records History Limitations: Reports: No Limitations - History of Present Illness Initial Comments - Free Text/Narative: Yolanda benedict a 73-year-old female was brought to the ER with c/o vomiting blood. She was not usual state of health until yesterday evening when she had 3 episodes of emesis. There was fresh blood and some coffee ground. She felt weak and almost fainted. She was cold and clammy. She came in by ambulance. She denies any melena stools abdominal pain fever chills chest pain or shortness of breath. She does have a history of coronary disease, seizure disorder stable anemia due to iron deficiency all stable .Has a previous history of GI bleed years ago. - Related Data Allergies/Adverse Reactions: Allergies Allergy/AdvReac Type Severity Reaction Status Date / Time No Known Allergies Allergy Verified 11/11/18 16:05 Home Medications: Home Meds Levothyroxine 75 mcg PO DAILY 02/12/14 [History] cycloSPORINE [Restasis] 1 drop EYEBOTH BID 02/12/14 [History] Albuterol Sulfate [Proair Hfa] 2 puff INH Q6HR PRN 04/29/16 [History] Cetirizine [ZyrTEC] 10 mg PO DAILY 04/29/16 [History] Fluticasone Propionate [Flovent] 1 sprays NASBOTH BID 04/29/16 [History] Fluticasone/Salmeterol [Advair 250-50 Diskus] 1 puff INH DAILY PRN 04/29/16 [ History] PHENobarbital [Phenobarbital] 100 mg PO BID 04/29/16 [History] Metoprolol Tartrate 12.5 mg PO BID 08/25/16 [History] Nitroglycerin 0.4 mg SL ASDIRECTED 08/25/16 [History] atorvaSTATin Calcium [Atorvastatin Calcium] 20 mg PO DAILY 08/25/16 [History] Acetaminophen [Tylenol Extra Strength] 1,000 mg pe PO QID PRN 11/11/18 [History] Aspirin [Halfprin] 81 mg PO DAILY 11/11/18 [History] Cholecalciferol (Vitamin D3) [Vitamin D3] 1,000 units PO DAILY 11/11/18 [History ] Escitalopram [Lexapro] 30 mg PO BEDTIME 11/11/18 [History] Multivitamin [Daily Multiple Vitamin] 1 each PO DAILY 11/11/18 [History] Naproxen 500 mg PO BID PRN 11/11/18 [History] amLODIPine [Norvasc] 10 mg PO DAILY 11/11/18 [History] levETIRAcetam [Keppra] 500 mg PO BID 11/11/18 [History] Past Medical History HEENT History: Reports: Cataract, Impaired Vision Cardiovascular History: Reports: Hypertension, SOB on Exertion Respiratory History: Reports: Asthma [employer]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: Musculoskeletal History: Reports: Arthritis, Fracture, RA Neurological History: Reports: Migraines, Seizure Psychiatric History: Reports: Depression Endocrine/Metabolic History: Reports: Hyperthyroidism, Osteopenia - Infectious Disease History Infectious Disease History: Reports: Measles, Shingles - Past Surgical History Female Surgical History: Reports: Hysterectomy, Salpingo-Oophorectomy Musculoskeletal Surgical History: Reports: Other (See Below) Social & Family History - Family History Family Medical History: Noncontributory - Tobacco Use Smoking Status *Q: Never Smoker Second Hand Smoke Exposure: No - Caffeine Use Caffeine Use: Reports: Coffee, Soda - Recreational Drug Use Recreational Drug Use: No H&P Review of Systems - Review of Systems: Review Of Systems: ROS reveals no pertinent complaints other than HPI. Exam - Exam Exam: See Below - Vital Signs Vital Signs: Last Vital Signs Temp 98 F 11/12/18 07:57 Pulse 88 11/12/18 07:57 Resp 16 11/12/18 07:57 BP 133/69 11/12/18 07:57 Pulse Ox 95 11/12/18 07:57 Weight: 59.783 kg - Exam General: Alert, Oriented, 4 HEENT: Other ([place]) Neck: Supple, Trachea Midline, 2 Lungs: Clear to Auscultation, Normal Respiratory Effort Cardiovascular: Regular Rate, Regular Rhythm GI/Abdominal Exam: Normal Bowel Sounds, Soft, Non-Tender, No Organomegaly, No Distention, No Abnormal Bruit, No Mass, Pelvis Stable (Female) Exam: Deferred Rectal (Female) Exam: Deferred Back Exam: Normal Inspection, Full Range of Motion, NT Extremities: Normal Inspection, Normal Range of Motion, Non-Tender, No Pedal Edema, Normal Capillary Refill Skin: Warm, Dry, Intact Neurological: Cranial Nerves Intact, Reflexes Equal Bilateral Neuro Extensive - Mental Status: Alert, Oriented x3, Normal Mood/Affect, Normal Cognition Neuro Extensive - Motor, Sensory, Reflexes: CN II-XII Intact, Normal Gait, Normal Reflexes Psychiatric: Alert, Normal Affect, Normal Mood - Patient Data Lab Results Last 24 hrs: Laboratory Results - last 24 hr 11/11/18 11/11/18 11/11/18 Range/Units 16:25 16:25 16:25 WBC 5.8 (4.5-12.0) X10-3/uL RBC 2.54 L (3.23-5.20) x10(6)uL Hgb 8.6 L (11.5-15.5) g/dL Hct 25.2 L D (30.0-51.3) % MCV 98.9 H (80-96) fL MCH 33.9 H (27.7-33.6) pg MCHC 34.2 (32.2-35.4) g/dL RDW 13.6 (11.5-15.5) % Plt Count 235 (125-369) X10(3)uL MPV 6.3 L (7.4-10.4) fL Neut % (Auto) 74.0 (46-82) % Lymph % (Auto) 17.6 (13-37) % [place] % (Auto) 7.2 (4-12) % Eos % (Auto) 1 (1.0-5.0) % Baso % (Auto) 0 (0-2) % Neut # (Auto) 4.3 (1.6-8.3) # Lymph # (Auto) 1.0 (0.6-5.0) # Bullitt # (Auto) 0.4 (0.0-1.3) # Eos # (Auto) 0.1 (0.0-0.8) # Baso # (Auto) 0.0 (0.0-0.2) # PT 10.1 (8.7-11.1) INR 1.04 (0.89-1.13) Sodium 136 (135-145) mmol/L Potassium 4.1 (3.5-5.3) mmol/L Chloride 102 (100-110) mmol/L Carbon Dioxide 25 (21-32) mmol/L BUN 40 H (7-18) mg/dL Creatinine 1.0 (0.55-1.02) mg/dL Est Cr Clr Drug Dosing 35.45 mL/min Estimated GFR (MDRD) 54 L (>60) BUN/Creatinine Ratio 40.0 H (9-20) Glucose 90 (80-116) mg/dL Calcium 8.2 L (8.6-10.2) mg/dL Total Bilirubin 0.3 (0.1-1.3) mg/dL Direct Bilirubin 0.10 (0.10-0.20) mg/dL AST 43 H (5-25) IU/L ALT 34 (12-36) U/L Alkaline Phosphatase 105 (56-112) IU/L Total Protein 7.6 (6.0-8.0) g/dL Albumin 2.9 L (3.2-4.6) g/dL Amylase 99 (25-115) U/L Blood Type Gel Antibody Screen Crossmatch 11/11/18 11/12/18 Range/Units 16:25 08:30 WBC 4.6 (4.5-12.0) X10-3/uL RBC 2.21 L (3.23-5.20) x10(6)uL Hgb 7.5 L (11.5-15.5) g/dL Hct 21.9 L* (30.0-51.3) % MCV 99.3 H (80-96) fL MCH 34.0 H (27.7-33.6) pg MCHC 34.3 (32.2-35.4) g/dL RDW 13.5 (11.5-15.5) % Plt Count 233 (125-369) X10(3)uL MPV 5.7 L (7.4-10.4) fL Neut % (Auto) 54.9 (46-82) % Lymph % (Auto) 34.7 (13-37) % [place] % (Auto) 9.1 (4-12) % Eos % (Auto) 1 (1.0-5.0) % Baso % (Auto) 0 (0-2) % Neut # (Auto) 2.6 (1.6-8.3) # Lymph # (Auto) 1.6 (0.6-5.0) # [place]itt # (Auto) 0.4 (0.0-1.3) # Eos # (Auto) 0.0 (0.0-0.8) # Baso # (Auto) 0.0 (0.0-0.2) # PT (8.7-11.1) INR (0.89-1.13) Sodium (135-145) mmol/L Potassium (3.5-5.3) mmol/L Chloride (100-110) mmol/L Carbon Dioxide (21-32) mmol/L BUN (7-18) mg/dL Creatinine (0.55-1.02) mg/dL Est Cr Clr Drug Dosing mL/min Estimated GFR (MDRD) (>60) BUN/Creatinine Ratio (9-20) Glucose (80-116) mg/dL Calcium (8.6-10.2) mg/dL Total Bilirubin (0.1-1.3) mg/dL Direct Bilirubin (0.10-0.20) mg/dL AST (5-25) IU/L ALT (12-36) U/L Alkaline Phosphatase (56-112) IU/L Total Protein (6.0-8.0) g/dL Albumin (3.2-4.6) g/dL Amylase (25-115) U/L Blood Type B POSITIVE Gel Antibody Screen Negative Crossmatch See Detail Result Diagrams: 11/12/18 08:30 11/11/18 16:25 - Problem List (1) Anemia associated with acute blood loss SNOMED Code(s): 054608865 ICD Code: D62 - ACUTE POSTHEMORRHAGIC ANEMIA Status: Acute Current Visit : Yes (2) Gastric ulcer SNOMED Code(s): 560226217 ICD Code: K25.9 - GASTRIC ULCER, UNSP ACUTE OR CHRONIC, W/O HEMOR OR PERF Status: Acute Current Visit: Yes Qualifiers: Gastric ulcer chronicity: acute Gastric ulcer complication status: with hemorrhage Qualified Code(s): K25.0 - Acute gastric ulcer with hemorrhage (3) HTN (hypertension) SNOMED Code(s): 27376401 ICD Code: I10 - ESSENTIAL (PRIMARY) HYPERTENSION Status: Acute Current Visit: No Qualifiers: Hypertension type: essential hypertension Qualified Code(s): I10 - Essential (primary) hypertension Problem List Initiated/Reviewed/Updated: Yes Orders Last 24hrs: Active Orders 24 hr Category Date Time Status Patient Status [ADT] Routine ADT 11/11/18 18:33 Active Oxygen Therapy [RC] PRN Care 11/11/18 18:33 Active Up With Assistance [RC] ASDIRECTED Care 11/11/18 18:31 Active Vital Signs [RC] Q4H Care 11/11/18 18:33 Active Regular Diet [DIET] Diet 11/12/18 Breakfast Active PATIENT RETYPE [BBK] Stat Lab 11/11/18 16:25 Results RED BLOOD CELLS LP [BBK] Routine Lab 11/12/18 08:50 Results TYPE AND SCREEN [BBK] Stat Lab 11/11/18 16:25 Results Acetaminophen [Tylenol Extra Strength] Med 11/12/18 02:28 Active 1,000 mg PO QID PRN Albuterol [Ventolin HFA] Med 11/11/18 20:51 Active 0 gm INH Q6H PRN Cetirizine [ZyrTEC] Med 11/12/18 09:00 Active 10 mg PO DAILY Cholecalciferol (Vitamin D3) [Vitamin D3] Med 11/12/18 09:00 Active 1,000 units PO DAILY Escitalopram [Lexapro] Med 11/11/18 21:00 Active 30 mg PO BEDTIME Fluticasone Propionate [Flonase] Med 11/12/18 09:00 Active 0 gm NASBOTH DAILY Lactated Ringers [Ringers, Lactated] 1,000 ml Med 11/11/18 17:30 Active IV ASDIRECTED Levothyroxine Med 11/12/18 07:30 Active 75 mcg PO ACBREAKFAST Metoprolol Tartrate [Lopressor] Med 11/11/18 21:00 Active 12.5 mg PO BID Multivitamins [Tab-A-Renee] Med 11/12/18 09:00 Active 1 tab PO DAILY Ondansetron [Zofran] Med 11/11/18 18:31 Active 8 mg IV Q6H PRN Phenobarbital [Phenobarbital] Med 11/11/18 21:45 Active 100 mg PO BID Sodium Chloride 0.9% [Normal Saline] 250 ml Med 11/12/18 09:00 Ordered IV ASDIRECTED Sodium Chloride 0.9% [Saline Flush] Med 11/11/18 16:11 Active 10 ml FLUSH ASDIRECTED PRN amLODIPine [Norvasc] Med 11/12/18 09:00 Active 10 mg PO DAILY atorvaSTATin [Lipitor] Med 11/12/18 09:00 Active 20 mg PO DAILY cycloSPORINE [Restasis] Med 11/11/18 21:00 Active 0 each EYEBOTH BID levETIRAcetam [Keppra] Med 11/11/18 21:00 Active 500 mg PO BID Peripheral IV Insertion Adult [OM.PC] Routine Oth 11/11/18 16:11 Ordered Transfuse RBC [Transfuse Red Blood Cells] [COMM] Oth 11/12/18 08:55 Ordered Routine Resuscitation Status Routine Resus Stat 11/11/18 17:24 Ordered Medication Orders Acetaminophen (Tylenol Extra Strength) 1,000 mg PO QID PRN PRN Reason: Headache Last Admin: 11/12/18 02:47 Dose: 1,000 mg Albuterol (Ventolin Hfa) 0 gm INH Q6H PRN PRN Reason: wheezing and SOB Amlodipine Besylate (Norvasc) 10 mg PO DAILY [facility] Atorvastatin Calcium (Lipitor) 20 mg PO DAILY [facility] Cetirizine HCl (Zyrtec) 10 mg PO DAILY [facility] Cholecalciferol (Vitamin D3) 1,000 units PO DAILY [facility] Cyclosporine (Restasis) 0 each EYEBOTH BID [facility] Last Admin: 11/11/18 21:39 Dose: Escitalopram Oxalate (Lexapro) 30 mg PO BEDTIME [facility]E Last Admin: 11/11/18 21:40 Dose: 30 mg Fluticasone Propionate (Flonase) 0 gm NASBOTH DAILY [facility] Lactated Ringer's (Ringers, Lactated) 1,000 mls @ 125 mls/hr IV ASDIRECTED [facility]AYE Last Admin: 11/12/18 02:48 Dose: 125 mls/hr Infusion: 11/12/18 02:48 Dose: 125 mls/hr Admin: 11/11/18 19:11 Dose: 125 mls/hr Sodium Chloride (Normal Saline) 250 mls @ 100 mls/hr IV ASDIRECTED [facility] Levetiracetam (Keppra) 500 mg PO BID [facility] Last Admin: 11/11/18 21:40 Dose: 500 mg Levothyroxine Sodium (Levothyroxine) 75 mcg PO ACBREAKFAST [facility] Metoprolol Tartrate (Lopressor) 12.5 mg PO BID [facility] Last Admin: 11/11/18 21:40 Dose: 12.5 mg Multivitamins/Minerals/Vitamin C (Tab-A-Renee) 1 tab PO DAILY [facility] Phenobarbital 100 Mg (TabOwn Med) 100 mg PO BID [facility] Last Admin: 11/11/18 21:49 Dose: 100 mg Ondansetron HCl (Zofran) 8 mg IV Q6H PRN PRN Reason: Nausea/Vomiting Sodium Chloride (Saline Flush) 10 ml FLUSH ASDIRECTED PRN PRN Reason: Keep Vein Open Last Admin: 11/11/18 16:14 Dose: 10 ml
[2018-11-12] MEDS: levETIRAcetam 500 MG Tab**OWN MED PO SCH (09:45)
[2018-11-12] MEDS ORDERED: CENTRUM SILVER PO SCH (09:45)
[2018-11-12] MEDS ORDERED: amLODIPine 10 MG Tab**OWN MED PO SCH (09:45)
[2018-11-12] MEDS: Metoprolol Tartrate 25 MG Tab**OWN MED PO SCH (09:46)
[2018-11-12] MEDS: PHENOBARBITAL 100 MG PO SCH (09:47)
[2018-11-12] MEDS: cycloSPORINE Ophth Drops U/D Box of 30 EYEBOTH SCH (09:52)
[2018-11-12] MEDS: Sodium Chloride 0.9% 250 ML IV SCH ×2 (10:24→13:45)
--- NOTE | 2018-11-13 13:19 | OR ---
DATE OF OPERATION: 11/11/2018 SURGEON: Uriah Toussaint MD PROCEDURE PERFORMED: Upper endoscopy with Quick clip application. PREOPERATIVE DIAGNOSIS: Hematemesis. POSTOPERATIVE DIAGNOSIS: Ulcer along the lesser curve. INDICATIONS FOR PROCEDURE: This 73-year-old white female presented this afternoon with a complaint of hematemesis. She was offered and accepted an EGD. DESCRIPTION OF PROCEDURE: After an excellent IV sedation was administered, bite block was inserted. Flexible endoscope was passed without difficulty down the patient's esophagus and into the stomach. The stomach was insufflated. Scope was passed through the pylorus to the second portion of the duodenum and slowly withdrawn. The following findings were noted: The duodenum was unremarkable. Stomach, we had to irrigate some blood-tinged contents, but we were able to get a good view of the stomach. Along the lesser curve, there was a linear- appearing ulceration. Biopsies were taken along the edge. There was adherent clot that we were not able to aspirate or remove. However, given the size of the ulcer, three Quick Clip2 Long clips were applied along the entire length of the ulcer bed to prevent further bleeding. A photo was taken. The esophagus was unremarkable. The patient tolerated the procedure well and was taken to recovery in a good condition. /[id number] /MODL
[2018-11-15 14:25] VITALS: BP 121/76
== END 2018-11-12 17:55 | disposition home or self-care (01) ==
LOC: FB.ED 16:00 → FB.SDS 17:04 → FB.MS 18:25
PROVIDERS: ADMIT Family Medicine; ATTEND Family Medicine
DX: K25.0 Acute gastric ulcer with hemorrhage (principal); K29.51 Unspecified chronic gastritis with bleeding; D62 Acute posthemorrhagic anemia; I10 Essential (primary) hypertension; I25.10 Atherosclerotic heart disease of native coronary artery without angina pectoris; E03.9 Hypothyroidism, unspecified; J45.909 Unspecified asthma, uncomplicated; G40.909 Epilepsy, unspecified, not intractable, without status epilepticus; M19.90 Unspecified osteoarthritis, unspecified site; Z88.2 Allergy status to sulfonamides; Z95.0 Presence of cardiac pacemaker; Z79.51 Long term (current) use of inhaled steroids; Z79.82 Long term (current) use of aspirin; Z79.899 Other long term (current) drug therapy
CPT/HCPCS: 00731-QZ; 36415; 36430; 80048; 80076; 82150; 85025; 85610; 86850; 86900; 86901; 86920; 86922; 88305; 88342; 96361; 96374; 96375; 99285; 99285-25; A9270-GY; C9113; G0378; J2001; J2250; J2405; J2704; J7030; J7050; J7120; P9016

== ENCOUNTER 2020-06-28 15:03 | Emergency (ER) | payer MEDICARE, OTHER ==
--- NOTE | 2020-06-28 15:33 | EDM.PDOC ---
ED HPI GENERAL MEDICAL PROBLEM - General Time Seen by Provider: 06/28/20 15:30 Source of Information: Reports: Patient History Limitations: Reports: No Limitations - History of Present Illness INITIAL COMMENTS - FREE TEXT/NARRATIVE: 75-year-old female for the past 3-4 days she has had elevated blood pressure. She has also had a frontal headache that is a dull headache and constant. She rates it as a 3/10. It is nonradiating. Nothing seems to make it better or worse. There is no localized area of weakness or numbness. She has had no nausea or vomiting. There has been no weakness or dizziness. No chest pain. She reports today that just prior to coming in she had an episode where she was sweating. It was a warm sweat. She did not have any feelings of fast heart rate, nausea or vomiting, near syncope or chest pain at this time. They did notice that her blood pressure was elevated and decided to come into the emergency department for evaluation. She does report a continuing headache but she is awake, alert and appropriate and able to give a good history. She appears in no distress at present. In fact, she tells me that she has not taken her blood pressure medications today. She has had no cough. No dysuria. No fevers or chills. She states she did have "bronchitis "about a week ago but those symptoms have resolved. She was treated with a Z-Shashank. There are no other associated signs or symptoms. There are no other modifying factors. 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 (see below) (Nothing.) - Related Data Allergies Allergy/AdvReac Type Severity Reaction Status Date / Time No Known Allergies Allergy Verified 06/28/20 15:11 Home Meds: Home Meds Levothyroxine 75 mcg PO DAILY 02/12/14 [History] cycloSPORINE [Restasis] 1 drop EYEBOTH BID 02/12/14 [History] Cetirizine [ZyrTEC] 10 mg PO DAILY 04/29/16 [History] Fluticasone Propion/Salmeterol [Advair 250-50 Diskus] 1 puff INH DAILY PRN 04/29/16 [History] PHENobarbitaL [Phenobarbital] 100 mg PO BID 04/29/16 [History] Metoprolol Tartrate 12.5 mg PO BID 08/25/16 [History] Nitroglycerin 0.4 mg SL ASDIRECTED 08/25/16 [History] atorvaSTATin Calcium [Atorvastatin Calcium] 40 mg PO DAILY 08/25/16 [History] Acetaminophen [Tylenol Extra Strength] 1,000 mg pe PO QID PRN 11/11/18 [History] Aspirin [Halfprin] 81 mg PO DAILY 11/11/18 [History] Cholecalciferol (Vitamin D3) [Vitamin D3] 1,000 units PO DAILY 11/11/18 [History] Multivitamin [Daily Multiple Vitamin] 1 each PO DAILY 11/11/18 [History] Naproxen 500 mg PO DAILY 11/11/18 [History] amLODIPine [Norvasc] 10 mg PO DAILY 11/11/18 [History] levETIRAcetam [Keppra] 500 mg PO BID 11/11/18 [History] Docusate Sodium [Colace] 100 mg PO DAILY 06/28/20 [History] Omeprazole 20 mg PO ACBREAKFAST 06/28/20 [History] Venlafaxine HCl [Venlafaxine ER] 37.5 mg DAILY 06/28/20 [History] polyethylene glycoL 3350 [MiraLAX] 17 gm DAILY PRN 06/28/20 [History] Past Medical History HEENT History: Reports: Cataract, Impaired Vision Cardiovascular History: Reports: High Cholesterol, Hypertension Respiratory History: Reports: Asthma Musculoskeletal History: Reports: Arthritis, Fracture, RA Neurological History: Reports: CVA, Migraines, Seizure Psychiatric History: Reports: Depression Endocrine/Metabolic History: Reports: Hypothyroidism, Osteopenia - Infectious Disease History Infectious Disease History: Reports: Measles, Shingles - Past Surgical History Female Surgical History: Reports: Hysterectomy, Salpingo-Oophorectomy Social & Family History - Tobacco Use Tobacco Use Status *Q: Never Tobacco User - Caffeine Use Caffeine Use: Reports: Coffee, Soda - Alcohol Use Alcohol Use History: No - Living Situation & Occupation Living situation: Reports: Occupation: Retired ED ROS GENERAL - Review of Systems Review Of Systems: See Below Constitutional: Reports: No Symptoms HEENT: Reports: No Symptoms Respiratory: Reports: No Symptoms Cardiovascular: Reports: No Symptoms GI/Abdominal: Reports: No Symptoms : Reports: No Symptoms Musculoskeletal: Reports: No Symptoms Skin: Reports: No Symptoms Neurological: Reports: Headache Hematologic/Lymphatic: Reports: No Symptoms (No chronic anticoagulation.) Immunologic: Reports: No Symptoms ED EXAM, GENERAL - Physical Exam Exam: See Below Exam Limited By: No Limitations General Appearance: Alert, WD/WN, No Apparent Distress Eye Exam: Bilateral Eye: EOMI, Normal Inspection Ears: Normal External Exam, Hearing Grossly Normal Ear Exam: Bilateral Ear: Auricle Normal Nose: Normal Inspection, Normal Mucosa, No Blood Throat/Mouth: Normal Inspection, Normal Oropharynx, Normal Voice, No Airway Compromise Head: Atraumatic, Normocephalic Neck: Normal Inspection, Supple, Non-Tender, Full Range of Motion Respiratory/Chest: No Respiratory Distress, Lungs Clear, Normal Breath Sounds, No Accessory Muscle Use, Chest Non-Tender Cardiovascular: Normal Peripheral Pulses, Regular Rate, Rhythm, No Murmur Peripheral Pulses: 2+: Radial (L), Radial (R) GI/Abdominal: Normal Bowel Sounds, Soft, Non-Tender Back Exam: Normal Inspection, Full Range of Motion Extremities: Normal Inspection, Normal Range of Motion, Non-Tender, No Pedal Edema, Normal Capillary Refill Neurological: Alert, Oriented, CN II-XII Intact, Normal Cognition, No Motor/Sensory Deficits, Other (No pronator drift) Psychiatric: Normal Affect Skin Exam: Warm, Dry, Intact, Normal Color, No Rash #1 Interpretation EKG Date: 06/28/20 Time: 15:16 Rhythm: NSR Rate (Beats/Min): 100 [place]: Normal P-Wave: Present QRS: Normal ST-T: Other (Nonspecific ST-T changes) QT: Normal Comparison: Other: (Compared to an EKG performed on 08/25/2016, there are no nonspecific ST-T changes but this could just be artifactual.) Course - Vital Signs Last Recorded V/S: Last Vital Signs Temp 36.7 C 06/28/20 15:03 Pulse 96 06/28/20 17:01 Resp 18 06/28/20 17:01 BP 166/91 H 06/28/20 17:01 Pulse Ox 99 06/28/20 17:01 - Orders/Labs/Meds Orders: Active Orders 24 hr Category Date Time Status EKG Documentation Completion [RC] ASDIRECTED Care 06/28/20 15:48 Active Head wo Cont [CT] Stat Exams 06/28/20 15:47 Ordered UA W/MICROSCOPIC [URIN] Stat Lab 06/28/20 15:47 Ordered EKG 12 Lead [EK] Routine Ther 06/28/20 15:47 Ordered Labs: Laboratory Tests 06/28/20 06/28/20 06/28/20 Range/Units 15:47 16:15 16:15 WBC 5.1 (3.0-10.3) x10-3/uL RBC 3.80 (3.60-5.20) x10(6)uL Hgb 12.0 (11.4-15.5) g/dL Hct 35.8 (34.2-48.2) % MCV 94.2 (76.7-100.5) fL MCH 31.5 (23.9-33.9) pg MCHC 33.4 (31.9-34.8) g/dL RDW 13.4 (12.3-16.5) % Plt Count 271 (151-488) x10(3)uL MPV 6.2 L (7.1-12.4) fL Neut % (Auto) 64.3 (30.8-76.2) % Lymph % (Auto) 22.7 (18.4-52.1) % Mineral % (Auto) 11.6 (4.4-15.7) % Eos % (Auto) 1.1 (0.6-8.1) % Baso % (Auto) 0.3 (0.2-1.5) % Neut # (Auto) 3.3 (1.5-6.3) x10-3/uL Lymph # (Auto) 1.2 (1.0-4.4) x10-3/uL Mineral # (Auto) 0.6 (0.3-1.0) x10-3/uL Eos # (Auto) 0.1 (0.0-0.8) x10-3/uL Baso # (Auto) 0.0 (0.0-0.1) x10-3/uL Sodium 133 L (135-145) mmol/L Potassium 3.7 (3.5-5.3) mmol/L Chloride 96 L D (100-110) mmol/L Carbon Dioxide 28 (21-32) mmol/L BUN 6 L D (7-18) mg/dL Creatinine 0.8 (0.55-1.02) mg/dL Est Cr Clr Drug Dosing 49.49 mL/min Estimated GFR (MDRD) > 60 (>60) BUN/Creatinine Ratio 7.5 L (9-20) Glucose 101 (80-116) mg/dL Calcium 9.0 (8.6-10.2) mg/dL Magnesium 1.8 (1.8-2.5) mg/dL Total Bilirubin 0.4 (0.1-1.3) mg/dL AST 20 D (5-25) IU/L ALT 14 D (12-36) U/L Alkaline Phosphatase 145 H (56-112) IU/L Troponin I (4.0-60.3) pg/mL Total Protein 9.5 H (6.0-8.0) g/dL Albumin 3.3 (3.2-4.6) g/dL Globulin 6.2 g/dL Albumin/Globulin Ratio 0.5 Urine Color Yellow (YELLOW) Urine Appearance Clear (CLEAR) Urine pH 7.0 H (5.0-6.5) Ur Specific [place] 1.005 L (1.010-1.025) Urine Protein 100 H (NEGATIVE) mg/dL Urine Glucose (UA) Normal (NORMAL) mg/dL Urine Ketones Negative (NEGATIVE) mg/dL Urine Occult Blood Negative (NEGATIVE) Urine Nitrite Negative (NEGATIVE) Urine Bilirubin Negative (NEGATIVE) Urine Urobilinogen Normal (NEGATIVE) mg/dL Ur Leukocyte Esterase Small H (NEGATIVE) Urine RBC 0-5 (0-5) Urine WBC 0-5 (0-5) Ur Squamous Epith Cells Moderate H (NS,R,O) Urine Bacteria Few H (NS) 06/28/20 Range/Units 16:15 WBC (3.0-10.3) x10-3/uL RBC (3.60-5.20) x10(6)uL Hgb (11.4-15.5) g/dL Hct (34.2-48.2) % MCV (76.7-100.5) fL MCH (23.9-33.9) pg MCHC (31.9-34.8) g/dL RDW (12.3-16.5) % Plt Count (151-488) x10(3)uL MPV (7.1-12.4) fL Neut % (Auto) (30.8-76.2) % Lymph % (Auto) (18.4-52.1) % Mineral % (Auto) (4.4-15.7) % Eos % (Auto) (0.6-8.1) % Baso % (Auto) (0.2-1.5) % Neut # (Auto) (1.5-6.3) x10-3/uL Lymph # (Auto) (1.0-4.4) x10-3/uL Mineral # (Auto) (0.3-1.0) x10-3/uL Eos # (Auto) (0.0-0.8) x10-3/uL Baso # (Auto) (0.0-0.1) x10-3/uL Sodium (135-145) mmol/L Potassium (3.5-5.3) mmol/L Chloride (100-110) mmol/L Carbon Dioxide (21-32) mmol/L BUN (7-18) mg/dL Creatinine (0.55-1.02) mg/dL Est Cr Clr Drug Dosing mL/min Estimated GFR (MDRD) (>60) BUN/Creatinine Ratio (9-20) Glucose (80-116) mg/dL Calcium (8.6-10.2) mg/dL Magnesium (1.8-2.5) mg/dL Total Bilirubin (0.1-1.3) mg/dL AST (5-25) IU/L ALT (12-36) U/L Alkaline Phosphatase (56-112) IU/L Troponin I 8.9 (4.0-60.3) pg/mL Total Protein (6.0-8.0) g/dL Albumin (3.2-4.6) g/dL Globulin g/dL Albumin/Globulin Ratio Urine Color (YELLOW) Urine Appearance (CLEAR) Urine pH (5.0-6.5) Ur Specific [place] (1.010-1.025) Urine Protein (NEGATIVE) mg/dL Urine Glucose (UA) (NORMAL) mg/dL Urine Ketones (NEGATIVE) mg/dL Urine Occult Blood (NEGATIVE) Urine Nitrite (NEGATIVE) Urine Bilirubin (NEGATIVE) Urine Urobilinogen (NEGATIVE) mg/dL Ur Leukocyte Esterase (NEGATIVE) Urine RBC (0-5) Urine WBC (0-5) Ur Squamous Epith Cells (NS,R,O) Urine Bacteria (NS) Meds: Medications Discontinued Medications Generic Name Dose Route Start Last Admin Trade Name Maximilianoq PRN Reason Stop Dose Admin Amlodipine Besylate 10 mg 06/28/20 15:49 06/28/20 16:14 Norvasc PO 06/28/20 15:50 10 mg ONETIME ONE Administration Metoprolol Tartrate 12.5 mg 06/28/20 15:49 06/28/20 16:13 Lopressor PO 06/28/20 15:50 12.5 mg ONETIME ONE Administration - Radiology Interpretation Free Text/Narrative:: CT scan of the head showed no acute intracranial abnormality per the [facility] radiologist. - Re-Assessments/Exams Free Text/Narrative Re-Assessment/Exam: 06/28/20 17:20: Patient is awake and alert. Her headache has resolved. Her blood pressure is still 160 systolic but her blood tests are all reassuringly normal. Her urinalysis was normal. CT scan of her head and EKG were normal as well. The patient remains neurologically stable. I have discussed all this with the patient and with her . I have stressed that it is important for her to take her blood pressure medications every day and that she should take them as directed. She is to follow-up with Dr. Tamayo this week. The patient and her are comfortable with the plans for discharge. Departure - Departure Time of Disposition: 17:25 Disposition: Home, Self-Care 01 Condition: Good (Stable.) Clinical Impression: Headache Qualifiers: Headache type: unspecified Headache chronicity pattern: acute headache Intractability: not intractable Qualified Code(s): R51.9 - Headache, unspecified HTN (hypertension) Qualifiers: Hypertension type: essential hypertension Qualified Code(s): I10 - Essential (primary) hypertension - Discharge Information Instructions: Hypertension, Adult, [id number] Referrals: Jorden Tamayo MD [Primary Care Provider] - Additional Instructions: Your blood tests were all reassuringly normal. Your EKG was normal. The CT scan of your head showed no acute abnormality. Your urine test was normal. Your blood pressure was somewhat elevated while you were in the emergency department. I think part of the reason is because you did not take your blood pressure medications today. It is important that you take your blood pressure medications as directed. That is, you should take your morning medications in the morning and your evening medications in the afternoon or suppertime. You should follow- up with Dr. Tamayo this week about your blood pressure. You should also take your blood pressure every day and keep a record of it for your doctor. Back to the emergency department for severe weakness, localized area of weakness or numbness, severe headache, unrelenting vomiting, chest pain, shortness of breath or any other concerning sign or symptom. Sepsis Event Note (ED) - Focused Exam Vital Signs: Vital Signs Temp Pulse Pulse Resp BP BP Pulse Ox 06/28/20 17:01 96 18 166/91 H 99 06/28/20 16:31 95 18 180/93 H 100 06/28/20 16:14 162/87 H 06/28/20 16:13 99 162/87 H 06/28/20 16:00 93 18 162/87 H 98 06/28/20 15:30 99 18 159/94 H 96 06/28/20 15:03 36.7 C 105 H 18 182/100 H 98 - My Orders Last 24 Hours: My Active Orders 06/28/20 15:47 Head wo Cont [CT] Stat UA W/MICROSCOPIC [URIN] Stat EKG 12 Lead [EK] Routine 06/28/20 15:48 EKG Documentation Completion [RC] ASDIRECTED - Assessment/Plan Last 24 Hours: My Active Orders 06/28/20 15:47 Head wo Cont [CT] Stat UA W/MICROSCOPIC [URIN] Stat EKG 12 Lead [EK] Routine 06/28/20 15:48 EKG Documentation Completion [RC] ASDIRECTED
[2020-06-28] MEDS ORDERED: amLODIPine 5 MG Tab PO ONE (15:49)
[2020-06-28] MEDS ORDERED: Metoprolol Tartrate 25 MG Tab PO ONE (15:49)
[2020-06-28 17:55] VITALS: BP 154/91; PULSE 88
== END 2020-06-28 17:39 | disposition home or self-care (01) ==
LOC: FB.ED 15:03
DX: I10 Essential (primary) hypertension (principal); E78.00 Pure hypercholesterolemia, unspecified; J45.909 Unspecified asthma, uncomplicated; F32.9 Major depressive disorder, single episode, unspecified; E03.9 Hypothyroidism, unspecified; M06.9 Rheumatoid arthritis, unspecified; R56.9 Unspecified convulsions; M19.90 Unspecified osteoarthritis, unspecified site; Z79.82 Long term (current) use of aspirin; Z86.73 Personal history of transient ischemic attack (TIA), and cerebral infarction without residual deficits
CPT/HCPCS: 36415; 70450; 80053; 81001; 83735; 84484; 85025; 93005; 99284; A9270; 93010; 99283

== ENCOUNTER 2021-04-30 08:48 | Emergency (ER) | payer MEDICARE, OTHER ==
[2021-04-30 09:00] VITALS: BP 183/77; PULSE 74
--- NOTE | 2021-04-30 10:35 | EDM.PDOC ---
ED HPI GENERAL MEDICAL PROBLEM - General Chief Complaint: Head Injury Stated Complaint: FALL WITH HEAD INJURY Time Seen by Provider: 04/30/21 09:00 Source of Information: Reports: Patient History Limitations: Reports: No Limitations - History of Present Illness INITIAL COMMENTS - FREE TEXT/NARRATIVE: Patient presented to the ED because of a head ijury. She was trying to go to her bed which is high,lost her balance and fell on the floor. There is no LOC but c/o headache. There is no nausea or vomiting. Right Head Pain Score (Numeric/FACES): 10 - Related Data Allergies Allergy/AdvReac Type Severity Reaction Status Date / Time No Known Allergies Allergy Verified 06/28/20 15:11 Home Meds: Home Meds Levothyroxine 75 mcg PO DAILY 02/12/14 [History] cycloSPORINE [Restasis] 1 drop EYEBOTH BID 02/12/14 [History] Cetirizine [ZyrTEC] 10 mg PO DAILY 04/29/16 [History] Fluticasone Propion/Salmeterol [Advair 250-50 Diskus] 1 puff INH DAILY PRN 04/29/16 [History] PHENobarbitaL [Phenobarbital] 100 mg PO BID 04/29/16 [History] Nitroglycerin 0.4 mg SL ASDIRECTED 08/25/16 [History] atorvaSTATin Calcium [Atorvastatin Calcium] 40 mg PO DAILY 08/25/16 [History] Acetaminophen [Tylenol Extra Strength] 1,000 mg pe PO QID PRN 11/11/18 [History] Aspirin [Halfprin] 81 mg PO DAILY 11/11/18 [History] Cholecalciferol (Vitamin D3) [Vitamin D3] 1,000 units PO DAILY 11/11/18 [History] Multivitamin [Daily Multiple Vitamin] 1 each PO DAILY 11/11/18 [History] Naproxen 500 mg PO DAILY 11/11/18 [History] amLODIPine [Norvasc] 10 mg PO DAILY 11/11/18 [History] levETIRAcetam [Keppra] 500 mg PO BID 11/11/18 [History] Docusate Sodium [Colace] 100 mg PO DAILY 06/28/20 [History] Omeprazole 20 mg PO ACBREAKFAST 06/28/20 [History] Venlafaxine HCl [Venlafaxine ER] 37.5 mg DAILY 06/28/20 [History] polyethylene glycoL 3350 [MiraLAX] 17 gm DAILY PRN 06/28/20 [History] Fluticasone Propionate [Flonase] 1 spray INH BID 04/30/21 [History] Metoprolol Succinate [Kapspargo Sprinkle] 100 mg PO DAILY 04/30/21 [History] Mupirocin Oint [Bactroban Oint] 1 applic TOP TID 04/30/21 [History] Triamcinolone Acetonide [Kenalog 0.1% Crm] 1 applic TOP TID PRN 04/30/21 [History] Past Medical History HEENT History: Reports: Cataract, Impaired Vision Other HEENT History: L cataract Cardiovascular History: Reports: High Cholesterol, Hypertension, Other (See Below) Other Cardiovascular History: implanted recorder Respiratory History: Reports: Asthma 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: Musculoskeletal History: Reports: Arthritis, Fracture, RA Neurological History: Reports: CVA, Migraines, Seizure Psychiatric History: Reports: Depression Endocrine/Metabolic History: Reports: Hypothyroidism, Osteopenia - Infectious Disease History Infectious Disease History: Reports: Measles, Shingles - Past Surgical History HEENT Surgical History: Reports: Cataract Surgery Other HEENT Surgeries/Procedures: R cataract surg Female Surgical History: Reports: Hysterectomy, Salpingo-Oophorectomy Neurological Surgical History: Reports: None Musculoskeletal Surgical History: Reports: Other (See Below) Other Musculoskeletal Surgeries/Procedures:: trigger toe Social & Family History - Family History Family Medical History: No Pertinent Family History - Tobacco Use Tobacco Use Status *Q: Never Tobacco User - Caffeine Use Caffeine Use: Reports: Coffee - Recreational Drug Use Recreational Drug Use: No - Living Situation & Occupation Living situation: Reports: Occupation: Retired ED ROS GENERAL - Review of Systems Review Of Systems: See Below Constitutional: Reports: No Symptoms HEENT: Reports: No Symptoms Respiratory: Reports: No Symptoms Cardiovascular: Reports: No Symptoms Endocrine: Reports: No Symptoms GI/Abdominal: Reports: No Symptoms : Reports: No Symptoms Musculoskeletal: Reports: No Symptoms Skin: Reports: No Symptoms Neurological: Reports: Headache Psychiatric: Reports: No Symptoms ED EXAM, HEAD INJURY - Physical Exam Exam: See Below Exam Limited By: No Limitations General Appearance: Alert, No Apparent Distress Head: Atraumatic, Normocephalic Eyes: Bilateral Eye: PERRL Ears: Normal External Exam, Normal [place], Hearing Grossly Normal Nose: Normal Inspection, Normal Mucousa, No Blood Throat/Mouth: Normal Inspection, Normal Lips, Normal Teeth, Normal Gums, Normal Oropharynx, Normal Voice Neck: Non-Tender, Full Range of Motion, Normal Alignment, Normal Inspection Respiratory: No Respiratory Distress, Lungs Clear, Normal Breath Sounds, No Accessory Muscle Use, Chest Non-Tender Cardiovascular: Normal Peripheral Pulses, Regular Rate, Rhythm, No Edema, No Gallop, No JVD, No Murmur, No Rub GI/Abdominal Exam: Normal Bowel Sounds, Soft, Non-Tender, No Organomegaly, No Distention, No Abnormal Bruit, No Mass Back Exam: Normal Inspection, Full Range of Motion Extremities: Normal Inspection, Normal Range of Motion, Non-Tender Neurologic: 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 structural mill II-XII nml As Tested, No Motor/Sensory Deficits, Alert, Normal Mood/Affect, Oriented x 3 Course - Vital Signs Text/Narrative:: Head CT-negative Last Recorded V/S: Last Vital Signs Temp 36.6 C 04/30/21 08:48 Pulse 74 04/30/21 08:48 Resp 18 04/30/21 08:48 BP 183/77 H 04/30/21 08:48 Pulse Ox 98 04/30/21 08:48 - Orders/Labs/Meds Orders: Active Orders 24 hr Category Date Time Status Head wo Cont [CT] Stat Exams 04/30/21 09:14 Taken Departure - Departure Time of Disposition: 11:00 Disposition: Home, Self-Care 01 Condition: Good Clinical Impression: Head injury, Fall - Discharge Information Instructions: Fall Prevention in the Home, Adult, [id number], Head Injury, Adult, [id number] Referrals: Jorden Tamayo MD [Primary Care Provider] - Forms: ED Department Discharge Additional Instructions: Please read discharge instructions on head injury and fall Take tylenol 1000 mg every 8 hours as needed for headache/pain Follow up as needed Sepsis Event Note (ED) - Evaluation Sepsis Screening Result: No Definite Risk - Focused Exam Vital Signs: Vital Signs Temp Pulse Resp BP Pulse Ox 04/30/21 08:48 36.6 C 74 18 183/77 H 98 - My Orders Last 24 Hours: My Active Orders 04/30/21 09:14 Head wo Cont [CT] Stat - Assessment/Plan Last 24 Hours: My Active Orders 04/30/21 09:14 Head wo Cont [CT] Stat
== END 2021-04-30 11:11 | disposition home or self-care (01) ==
LOC: FB.ED 08:48
DX: S09.90XA Unspecified injury of head, initial encounter (principal); E78.00 Pure hypercholesterolemia, unspecified; I10 Essential (primary) hypertension; J45.909 Unspecified asthma, uncomplicated; E03.9 Hypothyroidism, unspecified; Z79.82 Long term (current) use of aspirin; Z86.73 Personal history of transient ischemic attack (TIA), and cerebral infarction without residual deficits; W18.39XA Other fall on same level, initial encounter
CPT/HCPCS: 70450; 99283-25

== ENCOUNTER 2022-02-02 07:08 | Day surgery (SDC) | payer MEDICARE, OTHER ==
[~2022-02-02 07:08] MED LIST: Lactated Ringers 1,000 ML IV PRN
[2022-02-02] MEDS ORDERED: Midazolam 1 MG/ML 2 ML SDV IV ONE (07:09)
[2022-02-02] MEDS ORDERED: fentaNYL 100 MCG/2 ML SDV IV ONE (07:09)
[2022-02-02] MEDS: Sodium Chloride 0.9% 10 ML Syringe FLUSH PRN (07:58)
[2022-02-02] MEDS: acetaZOLAMIDE 500 MG Cap.ER PO ONE (09:36)
[2022-02-02 10:34] VITALS: BP 109/92; PULSE 65
== END 2022-02-02 10:05 | disposition home or self-care (01) ==
LOC: FB.SDS 07:08
PROVIDERS: ATTEND Ophthalmology
DX: H25.12 Age-related nuclear cataract, left eye (principal); H35.3132 Nonexudative age-related macular degeneration, bilateral, intermediate dry stage; H16.223 Keratoconjunctivitis sicca, not specified as Sjogren's, bilateral; Z96.1 Presence of intraocular lens; H52.01 Hypermetropia, right eye; I10 Essential (primary) hypertension; I25.2 Old myocardial infarction; Z79.899 Other long term (current) drug therapy; J45.30 Mild persistent asthma, uncomplicated; E78.2 Mixed hyperlipidemia; E03.9 Hypothyroidism, unspecified; Z98.890 Other specified postprocedural states; F33.1 Major depressive disorder, recurrent, moderate; F51.01 Primary insomnia
CPT/HCPCS: A9270-GY; J2250; J3010; J3490; V2632

== ENCOUNTER 2022-11-22 08:56 | Day surgery (SDC) | payer MEDICARE, OTHER ==
[2022-11-22] MEDS ORDERED: Midazolam 1 MG/ML 2 ML SDV IV ONE (08:57)
[2022-11-22] MEDS ORDERED: Lidocaine 2% 5 ML SDV IV ONE (08:57)
[2022-11-22] MEDS ORDERED: Propofol 200 MG/20 ML SDV IV ONE (08:57)
[2022-11-22] MEDS ORDERED: Sodium Chloride 0.9% 10 ML Syringe FLUSH PRN (09:15)
[2022-11-22] MEDS ORDERED: Lactated Ringers 1,000 ML IV SCH (09:15)
[2022-11-22] MEDS ORDERED: Simethicone Drops 40 MG/0.6 ML 30 ML Bottle ONE (11:02)
[2022-11-22 12:27] VITALS: BP 162/84; PULSE 67
== END 2022-11-22 12:40 | disposition home or self-care (01) ==
LOC: FB.SDS 08:56
PROVIDERS: ATTEND Surgery
DX: K29.50 Unspecified chronic gastritis without bleeding (principal); K21.9 Gastro-esophageal reflux disease without esophagitis; K44.9 Diaphragmatic hernia without obstruction or gangrene; J30.9 Allergic rhinitis, unspecified; N17.9 Acute kidney failure, unspecified; I10 Essential (primary) hypertension; E87.6 Hypokalemia; E87.1 Hypo-osmolality and hyponatremia; E03.9 Hypothyroidism, unspecified; D50.9 Iron deficiency anemia, unspecified; J45.20 Mild intermittent asthma, uncomplicated; E78.2 Mixed hyperlipidemia; I25.2 Old myocardial infarction; E07.9 Disorder of thyroid, unspecified; M06.9 Rheumatoid arthritis, unspecified; D69.6 Thrombocytopenia, unspecified; Z79.899 Other long term (current) drug therapy; Z79.890 Hormone replacement therapy; Z98.890 Other specified postprocedural states
CPT/HCPCS: 00731; 43239; 88305; 88342; A9270; J2250; J2704; J7120

== ENCOUNTER 2023-02-28 20:01 | Emergency (ER) | payer MEDICARE, OTHER ==
[2023-02-28] MEDS ORDERED: Sodium Chloride 0.9% 10 ML Syringe FLUSH PRN (20:03)
[2023-02-28] MEDS ORDERED: Acetaminophen 500 MG Tab PO ONE (20:25)
[2023-02-28 20:37] LABS: BLOOD UREA NITROGEN,BUN 15 mg/dL (7-18); BUN/CREATININE RATIO 13.6 (9-20); CARBON DIOXIDE,CO2 23 mmol/L (21-32); CHLORIDE,CL 95 mmol/L (100-110); CREATININE 1.1 mg/dL (0.55-1.02); ESTIMATED GFR 51 mL/min (>60); GLUCOSE RANDOM 135 mg/dL (80-116); POTASSIUM,K 3.7 mmol/L (3.5-5.3); SODIUM,NA 130 mmol/L (135-145)
[2023-02-28 20:39] LABS: BASOPHILS PERCENT AUTO 0.2 % (0.2-1.5); HEMATOCRIT 34.8 % (34.2-48.2); HEMOGLOBIN 11.5 g/dL (11.4-15.5); LYMPHOCYTES ABSOLUTE AUTO 0.5 x10-3/uL (1.0-4.4); MEAN CORPUSCULAR HEMOGLOBIN 27.5 pg (23.9-33.9); MEAN CORPUSCULAR VOLUME 83.3 fL (76.7-100.5); MEAN PLATELET VOLUME 6.6 fL (7.1-12.4); MONOCYTES ABSOLUTE AUTO 0.6 x10-3/uL (0.3-1.0); MONOCYTES PERCENT AUTO 8.8 % (4.4-15.7); NEUTROPHILS ABSOLUTE AUTO 5.3 x10-3/uL (1.5-6.3); PLATELET COUNT,PLT 284 x10(3)uL (151-488); RED BLOOD CELL COUNT 4.18 x10(6)uL (3.60-5.20); RED CELL DISTRIBUTION WIDTH 17.5 % (12.3-16.5); WHITE BLOOD CELL COUNT,WBC 6.4 x10-3/uL (3.0-10.3)
[2023-02-28 20:40] VITALS: BP 144/93; PULSE 103
[2023-02-28 20:41] LABS: EST CRCL DRUG DOSING (CG) 29.79 mL/min
[2023-02-28 20:43] LABS: A/G RATIO 0.7; ALANINE AMINOTRANSFERASE,ALT 11 U/L (12-36); ALBUMIN 3.5 g/dL (3.2-4.6); ALKALINE PHOSPHATASE 192 IU/L (56-112); ASPARTATE AMNIOTRANSFERASE,AST 18 IU/L (5-25); BILIRUBIN TOTAL 0.4 mg/dL (0.1-1.3); PROTEIN TOTAL,TP 8.6 g/dL (6.0-8.0)
[2023-02-28 20:49] LABS: LACTIC ACID 1.7 mmol/L (0.4-2.0)
[2023-02-28 20:52] LABS: INR 1.12 (1.00-1.24); PROTHROMBIN TIME 11.5 sec (9.0-11.1); PTT,PARTIAL THROMBOPLSTIN TIME 27.5 SECONDS (24.4-33.2)
== END 2023-02-28 21:40 ==
LOC: FB.ED 20:01
DX: I63.9 Cerebral infarction, unspecified (principal); R29.705 NIHSS score 5; J06.9 Acute upper respiratory infection, unspecified; I11.0 Hypertensive heart disease with heart failure; I50.9 Heart failure, unspecified; E03.9 Hypothyroidism, unspecified; E66.9 Obesity, unspecified; Z68.28 Body mass index [BMI] 28.0-28.9, adult; Z79.899 Other long term (current) drug therapy; Z20.822 Contact with and (suspected) exposure to COVID-19
CPT/HCPCS: 36415; 70450; 71045; 80053; 82550; 82947; 83605; 84484; 85025; 85610; 85730; 86140; 87040; 93005; 93010; 99284; 99285; A9270; U0002

== ENCOUNTER 2023-03-08 07:39 | Inpatient (IN) | payer MEDICARE, OTHER ==
[2023-03-08] MEDS ORDERED: Cetirizine 10 MG Tab PO PRN (16:18)
[2023-03-08] MEDS ORDERED: Fluticasone NASAL Spray 16 GM Bottle NASBOTH PRN (16:18)
[2023-03-08] MEDS ORDERED: PEG 400/Propylene Glycol Ophth Soln 15 ML Bottle EYEBOTH PRN (16:39)
[2023-03-08] MEDS: traZODone 50 MG Tab PO SCH (21:00)
[2023-03-08] MEDS: Ticagrelor 90 MG Tab PO SCH (21:00)
[2023-03-08] MEDS ORDERED: Non-Formulary Medication 1 Each (Cyclosporine [Restasis] 1 EACH Each) EYEBOTH SCH (21:00)
[2023-03-08] MEDS: Formoterol/Mometasone 200-5 MCG 8.8 GM Inhaler IH SCH (21:00)
[2023-03-08] MEDS: atorvaSTATin 40 MG Tab PO SCH (21:01)
[2023-03-08] MEDS: levETIRAcetam 500 MG Tab PO SCH (21:01)
[2023-03-09] MEDS: Naproxen 500 MG Tab PO PRN (02:07)
[2023-03-09] MEDS: Levothyroxine 75 MCG Tab PO SCH (06:30)
[2023-03-09] MEDS: Pantoprazole 40 MG Tab.CR PO SCH (06:30)
[2023-03-09] MEDS: Formoterol/Mometasone 200-5 MCG 8.8 GM Inhaler IH SCH ×2 (09:19→20:30)
[2023-03-09] MEDS: Ticagrelor 90 MG Tab PO SCH ×2 (09:19→20:30)
[2023-03-09] MEDS: Docusate Sodium 100 MG Cap PO SCH (09:19)
[2023-03-09] MEDS: Venlafaxine 150 MG Cap.ER PO SCH (09:20)
[2023-03-09] MEDS: levETIRAcetam 500 MG Tab PO SCH ×2 (09:20→20:30)
[2023-03-09] MEDS: Lutein/Minerals/Vitamin C/Vitamin E Acetate Cap PO SCH (09:20)
[2023-03-09] MEDS: Aspirin 81 MG Tab.EC PO SCH (09:20)
[2023-03-09] MEDS: Multivitamins with Iron/Calcium/Folic Acid/Minerals Tab PO SCH (09:21)
[2023-03-09] MEDS: Cholecalciferol (Vitamin D3) 25 MCG Tab PO SCH (09:21)
[2023-03-09] MEDS: amLODIPine 10 MG Tab PO SCH (09:21)
[2023-03-09] MEDS: Metoprolol Succinate 50 MG Tab.ER PO SCH (09:21)
[2023-03-09] MEDS: PHENobarbital 32.4 MG Tab PO SCH (09:35)
[2023-03-09] MEDS: traZODone 50 MG Tab PO SCH (20:30)
[2023-03-09] MEDS: atorvaSTATin 40 MG Tab PO SCH (20:30)
[2023-03-10] MEDS: Naproxen 500 MG Tab PO PRN ×2 (05:55→12:45)
[2023-03-10] MEDS: Levothyroxine 75 MCG Tab PO SCH (06:30)
[2023-03-10] MEDS: Pantoprazole 40 MG Tab.CR PO SCH (06:30)
[2023-03-10] MEDS: Venlafaxine 150 MG Cap.ER PO SCH (08:14)
[2023-03-10] MEDS: Multivitamins with Iron/Calcium/Folic Acid/Minerals Tab PO SCH (08:14)
[2023-03-10] MEDS: Cholecalciferol (Vitamin D3) 25 MCG Tab PO SCH (08:14)
[2023-03-10] MEDS: Metoprolol Succinate 50 MG Tab.ER PO SCH (08:14)
[2023-03-10] MEDS: Aspirin 81 MG Tab.EC PO SCH (08:14)
[2023-03-10] MEDS: Lutein/Minerals/Vitamin C/Vitamin E Acetate Cap PO SCH (08:15)
[2023-03-10] MEDS: amLODIPine 10 MG Tab PO SCH (08:15)
[2023-03-10] MEDS: Ticagrelor 90 MG Tab PO SCH ×2 (08:15→20:33)
[2023-03-10] MEDS: Formoterol/Mometasone 200-5 MCG 8.8 GM Inhaler IH SCH ×2 (08:16→20:33)
[2023-03-10] MEDS: levETIRAcetam 500 MG Tab PO SCH ×2 (08:16→20:34)
[2023-03-10] MEDS: PHENobarbital 32.4 MG Tab PO SCH (08:21)
[2023-03-10] MEDS: atorvaSTATin 40 MG Tab PO SCH (20:35)
[2023-03-10] MEDS: traZODone 50 MG Tab PO SCH (20:36)
[2023-03-11] MEDS: Naproxen 500 MG Tab PO PRN ×2 (01:41→11:32)
[2023-03-11] MEDS: Levothyroxine 75 MCG Tab PO SCH ×2 (06:51→07:59)
[2023-03-11] MEDS: Pantoprazole 40 MG Tab.CR PO SCH ×2 (06:51→07:59)
[2023-03-11] MEDS: levETIRAcetam 500 MG Tab PO SCH ×2 (08:02→20:41)
[2023-03-11] MEDS: Ticagrelor 90 MG Tab PO SCH ×2 (08:02→20:39)
[2023-03-11] MEDS: Aspirin 81 MG Tab.EC PO SCH (08:03)
[2023-03-11] MEDS: Docusate Sodium 100 MG Cap PO SCH (08:03)
[2023-03-11] MEDS: Venlafaxine 150 MG Cap.ER PO SCH (08:03)
[2023-03-11] MEDS: Multivitamins with Iron/Calcium/Folic Acid/Minerals Tab PO SCH (08:04)
[2023-03-11] MEDS: Cholecalciferol (Vitamin D3) 25 MCG Tab PO SCH (08:04)
[2023-03-11] MEDS: Lutein/Minerals/Vitamin C/Vitamin E Acetate Cap PO SCH (08:04)
[2023-03-11] MEDS: Metoprolol Succinate 50 MG Tab.ER PO SCH (08:10)
[2023-03-11] MEDS: Formoterol/Mometasone 200-5 MCG 8.8 GM Inhaler IH SCH ×2 (08:10→20:39)
[2023-03-11] MEDS: amLODIPine 10 MG Tab PO SCH (08:11)
[2023-03-11] MEDS: PHENobarbital 32.4 MG Tab PO SCH (08:13)
[2023-03-11] MEDS: atorvaSTATin 40 MG Tab PO SCH (20:41)
[2023-03-11] MEDS: traZODone 50 MG Tab PO SCH (20:41)
[2023-03-11] MEDS: Melatonin 3 MG Tab PO PRN (22:50)
[2023-03-12] MEDS: Acetaminophen 325 MG Tab PO PRN ×2 (01:49→13:40)
[2023-03-12] MEDS: Levothyroxine 75 MCG Tab PO SCH (06:38)
[2023-03-12] MEDS: Pantoprazole 40 MG Tab.CR PO SCH (06:38)
[2023-03-12] MEDS: Venlafaxine 150 MG Cap.ER PO SCH (08:12)
[2023-03-12] MEDS: Aspirin 81 MG Tab.EC PO SCH (08:12)
[2023-03-12] MEDS: Multivitamins with Iron/Calcium/Folic Acid/Minerals Tab PO SCH (08:12)
[2023-03-12] MEDS: Lutein/Minerals/Vitamin C/Vitamin E Acetate Cap PO SCH (08:12)
[2023-03-12] MEDS: levETIRAcetam 500 MG Tab PO SCH ×2 (08:12→20:14)
[2023-03-12] MEDS: Ticagrelor 90 MG Tab PO SCH ×2 (08:12→20:14)
[2023-03-12] MEDS: Cholecalciferol (Vitamin D3) 25 MCG Tab PO SCH (08:13)
[2023-03-12] MEDS: Formoterol/Mometasone 200-5 MCG 8.8 GM Inhaler IH SCH ×2 (08:13→20:14)
[2023-03-12] MEDS: PHENobarbital 32.4 MG Tab PO SCH (08:17)
[2023-03-12] MEDS: Metoprolol Succinate 50 MG Tab.ER PO SCH (08:17)
[2023-03-12] MEDS: amLODIPine 10 MG Tab PO SCH (08:18)
[2023-03-12] MEDS ORDERED: QUEtiapine 25 MG Tab PO PRN (08:18)
[2023-03-12 08:45] LABS: BASOPHILS PERCENT AUTO 0.2 % (0.2-1.5); EOSINOPHILS ABSOLUTE AUTO 0.1 x10-3/uL (0.0-0.8); HEMATOCRIT 30.2 % (34.2-48.2); HEMOGLOBIN 9.9 g/dL (11.4-15.5); LYMPHOCYTES ABSOLUTE AUTO 0.6 x10-3/uL (1.0-4.4); LYMPHOCYTES PERCENT AUTO 6.2 % (18.4-52.1); MEAN CORPUSCULAR HEMOGLOBIN 27.8 pg (23.9-33.9); MEAN CORPUSCULAR HGB CONC 32.9 g/dL (31.9-34.8); MEAN CORPUSCULAR VOLUME 84.3 fL (76.7-100.5); MEAN PLATELET VOLUME 5.8 fL (7.1-12.4); MONOCYTES ABSOLUTE AUTO 0.9 x10-3/uL (0.3-1.0); MONOCYTES PERCENT AUTO 9.2 % (4.4-15.7); NEUTROPHILS ABSOLUTE AUTO 8.5 x10-3/uL (1.5-6.3); NEUTROPHILS PERCENT AUTO 83.4 % (30.8-76.2); PLATELET COUNT,PLT 421 x10(3)uL (151-488); RED BLOOD CELL COUNT 3.58 x10(6)uL (3.60-5.20); RED CELL DISTRIBUTION WIDTH 18.1 % (12.3-16.5); WHITE BLOOD CELL COUNT,WBC 10.1 x10-3/uL (3.0-10.3)
[2023-03-12 08:51] LABS: BLOOD UREA NITROGEN,BUN 10 mg/dL (7-18); BUN/CREATININE RATIO 12.5 (9-20); CALCIUM 8.6 mg/dL (8.6-10.2); CARBON DIOXIDE,CO2 28 mmol/L (21-32); CHLORIDE,CL 92 mmol/L (100-110); CREATININE 0.8 mg/dL (0.55-1.02); EST CRCL DRUG DOSING (CG) 43.03 mL/min; ESTIMATED GFR 75 mL/min (>60); GLUCOSE RANDOM 117 mg/dL (80-116); POTASSIUM,K 3.7 mmol/L (3.5-5.3); SODIUM,NA 129 mmol/L (135-145)
[2023-03-12 11:30] LABS: APPEARANCE,URINE CLOUDY (CLEAR); BACTERIA,URINE MANY (NS); BILIRUBIN,URINE NEGATIVE (NEGATIVE); COLOR,URINE YELLOW (YELLOW); GLUCOSE,URINE NORMAL (NORMAL); KETONES,URINE NEGATIVE (NEGATIVE); LEUKOCYTE ESTERASE,URINE LARGE (NEGATIVE); NITRITE,URINE NEGATIVE (NEGATIVE); OCCULT BLOOD,URINE MODERATE (NEGATIVE); PROTEIN,URINE NEGATIVE (NEGATIVE); RBC,URINE >100 (0-5); SQUAMOUS EPITHELIAL CELLS,UR FEW (NS,R,O); UROBILINOGEN,URINE NORMAL (NEGATIVE); WBC,URINE >100 (0-5)
[2023-03-12] MEDS: Sulfamethoxazole/Trimethoprim 800-160 MG Tab PO SCH ×2 (12:13→20:29)
[2023-03-12] MEDS: Polyethylene Glycol 3350 Powder 17 GM Packet PO PRN (17:13)
[2023-03-12] MEDS: atorvaSTATin 40 MG Tab PO SCH (20:13)
[2023-03-12] MEDS: traZODone 50 MG Tab PO SCH (20:13)
[2023-03-12] MEDS: Melatonin 3 MG Tab PO PRN (20:16)
[2023-03-12] MEDS ORDERED: OLANZapine 5 MG Tab PO ONE (22:18)
[2023-03-12] MEDS ORDERED: LORazepam 0.5 MG Tab PO ONE (22:19)
[2023-03-13] MEDS: Levothyroxine 75 MCG Tab PO SCH (06:38)
[2023-03-13] MEDS: Pantoprazole 40 MG Tab.CR PO SCH (06:38)
[2023-03-13] MEDS: Docusate Sodium 100 MG Cap PO SCH ×2 (12:38→15:02)
[2023-03-13] MEDS: Lutein/Minerals/Vitamin C/Vitamin E Acetate Cap PO SCH ×2 (12:38→14:56)
[2023-03-13] MEDS: Formoterol/Mometasone 200-5 MCG 8.8 GM Inhaler IH SCH ×3 (12:38→20:02)
[2023-03-13] MEDS: Venlafaxine 150 MG Cap.ER PO SCH ×2 (12:38→15:01)
[2023-03-13] MEDS: Ticagrelor 90 MG Tab PO SCH ×3 (12:38→20:04)
[2023-03-13] MEDS: PHENobarbital 32.4 MG Tab PO SCH ×2 (12:38→14:55)
[2023-03-13] MEDS: levETIRAcetam 500 MG Tab PO SCH ×3 (12:38→20:05)
[2023-03-13] MEDS: Aspirin 81 MG Tab.EC PO SCH ×2 (12:38→14:55)
[2023-03-13] MEDS: Sulfamethoxazole/Trimethoprim 800-160 MG Tab PO SCH ×3 (12:39→20:17)
[2023-03-13] MEDS: amLODIPine 10 MG Tab PO SCH ×2 (12:39→14:55)
[2023-03-13] MEDS: Multivitamins with Iron/Calcium/Folic Acid/Minerals Tab PO SCH ×2 (12:39→14:56)
[2023-03-13] MEDS: Cholecalciferol (Vitamin D3) 25 MCG Tab PO SCH ×2 (12:39→15:01)
[2023-03-13] MEDS: Metoprolol Succinate 50 MG Tab.ER PO SCH ×2 (12:39→15:01)
[2023-03-13] MEDS: Polyethylene Glycol 3350 Powder 17 GM Packet PO PRN (18:25)
[2023-03-13] MEDS: Acetaminophen 325 MG Tab PO PRN (20:02)
[2023-03-13] MEDS: Melatonin 3 MG Tab PO PRN (20:02)
[2023-03-13] MEDS: atorvaSTATin 40 MG Tab PO SCH (20:03)
[2023-03-13] MEDS: traZODone 50 MG Tab PO SCH (20:05)
[2023-03-13] MEDS: Zolpidem 5 MG Tab PO SCH (20:17)
[2023-03-14] MEDS: Levothyroxine 75 MCG Tab PO SCH (06:31)
[2023-03-14] MEDS: Pantoprazole 40 MG Tab.CR PO SCH (06:31)
[2023-03-14] MEDS: Acetaminophen 325 MG Tab PO PRN ×2 (08:22→20:42)
[2023-03-14] MEDS: Ticagrelor 90 MG Tab PO SCH ×2 (08:26→20:41)
[2023-03-14] MEDS: Aspirin 81 MG Tab.EC PO SCH (08:28)
[2023-03-14] MEDS: Venlafaxine 150 MG Cap.ER PO SCH (08:28)
[2023-03-14] MEDS: levETIRAcetam 500 MG Tab PO SCH ×2 (08:30→20:40)
[2023-03-14] MEDS: amLODIPine 10 MG Tab PO SCH (08:31)
[2023-03-14] MEDS: PHENobarbital 32.4 MG Tab PO SCH (08:32)
[2023-03-14] MEDS: Lutein/Minerals/Vitamin C/Vitamin E Acetate Cap PO SCH (08:35)
[2023-03-14] MEDS: Metoprolol Succinate 50 MG Tab.ER PO SCH (08:37)
[2023-03-14] MEDS: Cholecalciferol (Vitamin D3) 25 MCG Tab PO SCH (08:39)
[2023-03-14] MEDS: Multivitamins with Iron/Calcium/Folic Acid/Minerals Tab PO SCH (08:39)
[2023-03-14] MEDS: Sulfamethoxazole/Trimethoprim 800-160 MG Tab PO SCH ×2 (08:39→20:40)
[2023-03-14] MEDS: Formoterol/Mometasone 200-5 MCG 8.8 GM Inhaler IH SCH ×2 (08:42→20:41)
[2023-03-14] MEDS: Docusate Sodium 100 MG Cap PO SCH (10:02)
[2023-03-14] MEDS: Sodium Chloride 1 GM Tab PO SCH (10:02)
[2023-03-14] MEDS: Polyethylene Glycol 3350 Powder 17 GM Packet PO PRN (10:02)
[2023-03-14] MEDS: traZODone 50 MG Tab PO SCH (20:40)
[2023-03-14] MEDS: Zolpidem 5 MG Tab PO SCH (20:40)
[2023-03-14] MEDS: Melatonin 3 MG Tab PO PRN (20:40)
[2023-03-14] MEDS: atorvaSTATin 40 MG Tab PO SCH (20:42)
[2023-03-14] MEDS: valACYclovir 1,000 MG Tab PO SCH (20:49)
[2023-03-15] MEDS: Pantoprazole 40 MG Tab.CR PO SCH (06:39)
[2023-03-15] MEDS: Levothyroxine 75 MCG Tab PO SCH (06:39)
[2023-03-15] MEDS: Cholecalciferol (Vitamin D3) 25 MCG Tab PO SCH (08:24)
[2023-03-15] MEDS: Sodium Chloride 1 GM Tab PO SCH (08:24)
[2023-03-15] MEDS: amLODIPine 10 MG Tab PO SCH (08:24)
[2023-03-15] MEDS: Multivitamins with Iron/Calcium/Folic Acid/Minerals Tab PO SCH (08:24)
[2023-03-15] MEDS: Sulfamethoxazole/Trimethoprim 800-160 MG Tab PO SCH ×2 (08:27→20:32)
[2023-03-15] MEDS: Venlafaxine 150 MG Cap.ER PO SCH (08:27)
[2023-03-15] MEDS: Metoprolol Succinate 50 MG Tab.ER PO SCH (08:27)
[2023-03-15] MEDS: Aspirin 81 MG Tab.EC PO SCH (08:28)
[2023-03-15] MEDS: levETIRAcetam 500 MG Tab PO SCH ×2 (08:28→20:32)
[2023-03-15] MEDS: Acetaminophen 325 MG Tab PO PRN ×2 (08:28→13:39)
[2023-03-15] MEDS: Docusate Sodium 100 MG Cap PO SCH (08:28)
[2023-03-15] MEDS: Ticagrelor 90 MG Tab PO SCH ×2 (08:28→20:32)
[2023-03-15] MEDS: Formoterol/Mometasone 200-5 MCG 8.8 GM Inhaler IH SCH ×2 (08:29→20:32)
[2023-03-15] MEDS: PHENobarbital 32.4 MG Tab PO SCH (08:39)
[2023-03-15] MEDS: valACYclovir 1,000 MG Tab PO SCH ×2 (08:53→21:41)
[2023-03-15] MEDS: Lutein/Minerals/Vitamin C/Vitamin E Acetate Cap PO SCH (08:53)
[2023-03-15] MEDS: Polyethylene Glycol 3350 Powder 17 GM Packet PO PRN (17:39)
[2023-03-15] MEDS: traZODone 50 MG Tab PO SCH (20:32)
[2023-03-15] MEDS: atorvaSTATin 40 MG Tab PO SCH (20:32)
[2023-03-15] MEDS: Zolpidem 5 MG Tab PO SCH (20:38)
[2023-03-15] MEDS: Melatonin 3 MG Tab PO PRN (20:40)
[2023-03-16] MEDS: Acetaminophen 325 MG Tab PO PRN ×3 (03:28→21:13)
[2023-03-16] MEDS: Levothyroxine 75 MCG Tab PO SCH (06:36)
[2023-03-16] MEDS: Pantoprazole 40 MG Tab.CR PO SCH (06:36)
[2023-03-16] MEDS: valACYclovir 1,000 MG Tab PO SCH ×2 (10:42→21:07)
[2023-03-16] MEDS: Lutein/Minerals/Vitamin C/Vitamin E Acetate Cap PO SCH (10:42)
[2023-03-16] MEDS: Ticagrelor 90 MG Tab PO SCH ×2 (10:43→21:03)
[2023-03-16] MEDS: Cholecalciferol (Vitamin D3) 25 MCG Tab PO SCH (10:43)
[2023-03-16] MEDS: Aspirin 81 MG Tab.EC PO SCH (10:43)
[2023-03-16] MEDS: Venlafaxine 150 MG Cap.ER PO SCH (10:43)
[2023-03-16] MEDS: amLODIPine 10 MG Tab PO SCH (10:43)
[2023-03-16] MEDS: Docusate Sodium 100 MG Cap PO SCH (10:43)
[2023-03-16] MEDS: Sodium Chloride 1 GM Tab PO SCH (10:43)
[2023-03-16] MEDS: levETIRAcetam 500 MG Tab PO SCH ×2 (10:43→21:04)
[2023-03-16] MEDS: Metoprolol Succinate 50 MG Tab.ER PO SCH (10:45)
[2023-03-16] MEDS: Multivitamins with Iron/Calcium/Folic Acid/Minerals Tab PO SCH (10:46)
[2023-03-16] MEDS: Formoterol/Mometasone 200-5 MCG 8.8 GM Inhaler IH SCH ×2 (10:46→21:04)
[2023-03-16] MEDS: Sulfamethoxazole/Trimethoprim 800-160 MG Tab PO SCH ×2 (10:46→21:08)
[2023-03-16] MEDS: PHENobarbital 32.4 MG Tab PO SCH (10:54)
[2023-03-16] MEDS: Zolpidem 10 MG Tab PO SCH (21:03)
[2023-03-16] MEDS: atorvaSTATin 40 MG Tab PO SCH (21:05)
[2023-03-16] MEDS: traZODone 50 MG Tab PO SCH (21:06)
[2023-03-16] MEDS: Melatonin 3 MG Tab PO PRN (21:08)
[2023-03-16] MEDS: Nystatin Susp 100,000 Unit/ML 5 ML UD Cup PO SCH (21:19)
[2023-03-17] MEDS: Pantoprazole 40 MG Tab.CR PO SCH (06:31)
[2023-03-17] MEDS: Levothyroxine 75 MCG Tab PO SCH (06:31)
[2023-03-17] MEDS: Acetaminophen 325 MG Tab PO PRN ×3 (06:31→19:07)
[2023-03-17 06:47] LABS: BASOPHILS PERCENT AUTO 0.6 % (0.2-1.5); EOSINOPHILS ABSOLUTE AUTO 0.1 x10-3/uL (0.0-0.8); HEMATOCRIT 30.5 % (34.2-48.2); HEMOGLOBIN 10.4 g/dL (11.4-15.5); LYMPHOCYTES ABSOLUTE AUTO 0.7 x10-3/uL (1.0-4.4); MEAN CORPUSCULAR HEMOGLOBIN 28.4 pg (23.9-33.9); MEAN CORPUSCULAR VOLUME 83.5 fL (76.7-100.5); MEAN PLATELET VOLUME 5.9 fL (7.1-12.4); MONOCYTES ABSOLUTE AUTO 0.4 x10-3/uL (0.3-1.0); MONOCYTES PERCENT AUTO 8.6 % (4.4-15.7); NEUTROPHILS ABSOLUTE AUTO 3.7 x10-3/uL (1.5-6.3); NEUTROPHILS PERCENT AUTO 73.8 % (30.8-76.2); PLATELET COUNT,PLT 415 x10(3)uL (151-488); RED BLOOD CELL COUNT 3.66 x10(6)uL (3.60-5.20); RED CELL DISTRIBUTION WIDTH 17.7 % (12.3-16.5)
[2023-03-17 06:49] LABS: BLOOD UREA NITROGEN,BUN 12 mg/dL (7-18); CALCIUM 8.7 mg/dL (8.6-10.2); CARBON DIOXIDE,CO2 27 mmol/L (21-32); CHLORIDE,CL 97 mmol/L (100-110); CREATININE 1.2 mg/dL (0.55-1.02); EST CRCL DRUG DOSING (CG) 28.68 mL/min; ESTIMATED GFR 46 mL/min (>60); GLUCOSE RANDOM 112 mg/dL (80-116); POTASSIUM,K 4.1 mmol/L (3.5-5.3); SODIUM,NA 132 mmol/L (135-145)
[2023-03-17] MEDS: Ticagrelor 90 MG Tab PO SCH ×2 (08:20→20:45)
[2023-03-17] MEDS: levETIRAcetam 500 MG Tab PO SCH ×2 (08:20→20:46)
[2023-03-17] MEDS: Cholecalciferol (Vitamin D3) 25 MCG Tab PO SCH (08:20)
[2023-03-17] MEDS: Docusate Sodium 100 MG Cap PO SCH (08:20)
[2023-03-17] MEDS: Lutein/Minerals/Vitamin C/Vitamin E Acetate Cap PO SCH (08:20)
[2023-03-17] MEDS: Sulfamethoxazole/Trimethoprim 800-160 MG Tab PO SCH ×2 (08:21→20:48)
[2023-03-17] MEDS: Multivitamins with Iron/Calcium/Folic Acid/Minerals Tab PO SCH (08:21)
[2023-03-17] MEDS: valACYclovir 1,000 MG Tab PO SCH ×2 (08:21→20:49)
[2023-03-17] MEDS: Aspirin 81 MG Tab.EC PO SCH (08:21)
[2023-03-17] MEDS: Venlafaxine 150 MG Cap.ER PO SCH (08:21)
[2023-03-17] MEDS: PHENobarbital 32.4 MG Tab PO SCH (08:21)
[2023-03-17] MEDS: Metoprolol Succinate 50 MG Tab.ER PO SCH (08:21)
[2023-03-17] MEDS: amLODIPine 10 MG Tab PO SCH (08:22)
[2023-03-17] MEDS: Formoterol/Mometasone 200-5 MCG 8.8 GM Inhaler IH SCH ×2 (08:22→20:46)
[2023-03-17] MEDS: Nystatin Susp 100,000 Unit/ML 5 ML UD Cup PO SCH ×4 (11:13→20:47)
[2023-03-17] MEDS: Sodium Chloride 1 GM Tab PO SCH (11:14)
[2023-03-17] MEDS: atorvaSTATin 40 MG Tab PO SCH (20:47)
[2023-03-17] MEDS: traZODone 50 MG Tab PO SCH (20:48)
[2023-03-17] MEDS: Melatonin 3 MG Tab PO PRN (20:56)
[2023-03-17] MEDS: Zolpidem 10 MG Tab PO SCH (20:56)
[2023-03-18] MEDS: Pantoprazole 40 MG Tab.CR PO SCH (06:30)
[2023-03-18] MEDS: Levothyroxine 75 MCG Tab PO SCH (06:31)
[2023-03-18] MEDS: Metoprolol Succinate 50 MG Tab.ER PO SCH (09:39)
[2023-03-18] MEDS: Docusate Sodium 100 MG Cap PO SCH (09:42)
[2023-03-18] MEDS: Venlafaxine 150 MG Cap.ER PO SCH (09:42)
[2023-03-18] MEDS: levETIRAcetam 500 MG Tab PO SCH ×2 (09:44→21:17)
[2023-03-18] MEDS: Aspirin 81 MG Tab.EC PO SCH (09:44)
[2023-03-18] MEDS: Lutein/Minerals/Vitamin C/Vitamin E Acetate Cap PO SCH (09:47)
[2023-03-18] MEDS: amLODIPine 10 MG Tab PO SCH (09:47)
[2023-03-18] MEDS: Sulfamethoxazole/Trimethoprim 800-160 MG Tab PO SCH ×2 (09:49→21:18)
[2023-03-18] MEDS: Ticagrelor 90 MG Tab PO SCH ×2 (09:49→21:16)
[2023-03-18] MEDS: Sodium Chloride 1 GM Tab PO SCH (09:49)
[2023-03-18] MEDS: Formoterol/Mometasone 200-5 MCG 8.8 GM Inhaler IH SCH ×2 (09:50→21:17)
[2023-03-18] MEDS: Cholecalciferol (Vitamin D3) 25 MCG Tab PO SCH (09:51)
[2023-03-18] MEDS: valACYclovir 1,000 MG Tab PO SCH ×2 (09:51→21:20)
[2023-03-18] MEDS: Nystatin Susp 100,000 Unit/ML 5 ML UD Cup PO SCH ×4 (09:54→21:18)
[2023-03-18] MEDS: PHENobarbital 32.4 MG Tab PO SCH (10:02)
[2023-03-18] MEDS: Multivitamins with Iron/Calcium/Folic Acid/Minerals Tab PO SCH (10:02)
[2023-03-18] MEDS: Acetaminophen 325 MG Tab PO PRN ×2 (11:13→21:31)
[2023-03-18] MEDS ORDERED: hydrOXYzine HCl 10 MG Tab PO ONE (12:00)
[2023-03-18] MEDS: atorvaSTATin 40 MG Tab PO SCH (21:17)
[2023-03-18] MEDS: traZODone 50 MG Tab PO SCH (21:18)
[2023-03-18] MEDS: Zolpidem 10 MG Tab PO SCH (21:31)
[2023-03-19] MEDS: Pantoprazole 40 MG Tab.CR PO SCH (07:10)
[2023-03-19] MEDS: Levothyroxine 75 MCG Tab PO SCH (07:10)
[2023-03-19] MEDS: Acetaminophen 325 MG Tab PO PRN ×3 (09:04→20:10)
[2023-03-19] MEDS: PHENobarbital 32.4 MG Tab PO SCH (09:05)
[2023-03-19] MEDS: Ticagrelor 90 MG Tab PO SCH ×2 (09:06→20:17)
[2023-03-19] MEDS: valACYclovir 1,000 MG Tab PO SCH ×2 (09:06→20:19)
[2023-03-19] MEDS: Sulfamethoxazole/Trimethoprim 800-160 MG Tab PO SCH (09:06)
[2023-03-19] MEDS: Docusate Sodium 100 MG Cap PO SCH (09:06)
[2023-03-19] MEDS: Multivitamins with Iron/Calcium/Folic Acid/Minerals Tab PO SCH (09:07)
[2023-03-19] MEDS: Metoprolol Succinate 50 MG Tab.ER PO SCH (09:07)
[2023-03-19] MEDS: Venlafaxine 150 MG Cap.ER PO SCH (09:07)
[2023-03-19] MEDS: Sodium Chloride 1 GM Tab PO SCH (09:07)
[2023-03-19] MEDS: levETIRAcetam 500 MG Tab PO SCH ×2 (09:07→20:18)
[2023-03-19] MEDS: Lutein/Minerals/Vitamin C/Vitamin E Acetate Cap PO SCH (09:07)
[2023-03-19] MEDS: Cholecalciferol (Vitamin D3) 25 MCG Tab PO SCH (09:08)
[2023-03-19] MEDS: amLODIPine 10 MG Tab PO SCH (09:08)
[2023-03-19] MEDS: Aspirin 81 MG Tab.EC PO SCH (09:08)
[2023-03-19] MEDS: Formoterol/Mometasone 200-5 MCG 8.8 GM Inhaler IH SCH ×2 (09:09→20:17)
[2023-03-19] MEDS: Nystatin Susp 100,000 Unit/ML 5 ML UD Cup PO SCH ×4 (09:09→20:18)
[2023-03-19] MEDS: Zolpidem 10 MG Tab PO SCH (19:59)
[2023-03-19] MEDS: QUEtiapine 25 MG Tab PO SCH (20:18)
[2023-03-19] MEDS: traZODone 50 MG Tab PO SCH (20:18)
[2023-03-19] MEDS: atorvaSTATin 40 MG Tab PO SCH (20:18)
[2023-03-20] MEDS: Acetaminophen 325 MG Tab PO PRN ×3 (03:59→21:07)
[2023-03-20] MEDS: Pantoprazole 40 MG Tab.CR PO SCH (06:44)
[2023-03-20] MEDS: Levothyroxine 75 MCG Tab PO SCH (06:44)
[2023-03-20] MEDS: amLODIPine 10 MG Tab PO SCH (08:22)
[2023-03-20] MEDS: Aspirin 81 MG Tab.EC PO SCH (08:22)
[2023-03-20] MEDS: PHENobarbital 32.4 MG Tab PO SCH (08:22)
[2023-03-20] MEDS: Cholecalciferol (Vitamin D3) 25 MCG Tab PO SCH (08:23)
[2023-03-20] MEDS: Formoterol/Mometasone 200-5 MCG 8.8 GM Inhaler IH SCH ×2 (08:23→21:04)
[2023-03-20] MEDS: Metoprolol Succinate 50 MG Tab.ER PO SCH (08:23)
[2023-03-20] MEDS: Nystatin Susp 100,000 Unit/ML 5 ML UD Cup PO SCH ×4 (08:23→21:06)
[2023-03-20] MEDS: Lutein/Minerals/Vitamin C/Vitamin E Acetate Cap PO SCH (08:23)
[2023-03-20] MEDS: valACYclovir 1,000 MG Tab PO SCH ×2 (08:24→21:06)
[2023-03-20] MEDS: Venlafaxine 150 MG Cap.ER PO SCH (08:24)
[2023-03-20] MEDS: levETIRAcetam 500 MG Tab PO SCH ×2 (08:24→21:04)
[2023-03-20] MEDS: Ticagrelor 90 MG Tab PO SCH ×2 (08:24→21:04)
[2023-03-20] MEDS: Multivitamins with Iron/Calcium/Folic Acid/Minerals Tab PO SCH (08:24)
[2023-03-20] MEDS: Sodium Chloride 1 GM Tab PO SCH (08:24)
[2023-03-20] MEDS: Docusate Sodium 100 MG Cap PO SCH (08:24)
[2023-03-20] MEDS: atorvaSTATin 40 MG Tab PO SCH (21:05)
[2023-03-20] MEDS: traZODone 50 MG Tab PO SCH (21:06)
[2023-03-20] MEDS: Melatonin 3 MG Tab PO SCH (21:06)
[2023-03-20] MEDS: QUEtiapine 25 MG Tab PO SCH (21:11)
[2023-03-21] MEDS: Levothyroxine 75 MCG Tab PO SCH (09:15)
[2023-03-21] MEDS: Pantoprazole 40 MG Tab.CR PO SCH (09:15)
[2023-03-21] MEDS: Formoterol/Mometasone 200-5 MCG 8.8 GM Inhaler IH SCH ×2 (09:17→21:04)
[2023-03-21] MEDS: Docusate Sodium 100 MG Cap PO SCH (09:17)
[2023-03-21] MEDS: Ticagrelor 90 MG Tab PO SCH ×2 (09:17→21:04)
[2023-03-21] MEDS: Aspirin 81 MG Tab.EC PO SCH (09:18)
[2023-03-21] MEDS: levETIRAcetam 500 MG Tab PO SCH ×2 (09:18→21:05)
[2023-03-21] MEDS: Sodium Chloride 1 GM Tab PO SCH (09:19)
[2023-03-21] MEDS: valACYclovir 1,000 MG Tab PO SCH (09:19)
[2023-03-21] MEDS: Lutein/Minerals/Vitamin C/Vitamin E Acetate Cap PO SCH (09:19)
[2023-03-21] MEDS: Venlafaxine 150 MG Cap.ER PO SCH (09:20)
[2023-03-21] MEDS: Cholecalciferol (Vitamin D3) 25 MCG Tab PO SCH (09:20)
[2023-03-21] MEDS: Multivitamins with Iron/Calcium/Folic Acid/Minerals Tab PO SCH (09:20)
[2023-03-21] MEDS: Nystatin Susp 100,000 Unit/ML 5 ML UD Cup PO SCH ×3 (09:21→17:59)
[2023-03-21] MEDS: Metoprolol Succinate 50 MG Tab.ER PO SCH (09:32)
[2023-03-21] MEDS: amLODIPine 10 MG Tab PO SCH (09:32)
[2023-03-21] MEDS: PHENobarbital 32.4 MG Tab PO SCH (09:34)
[2023-03-21] MEDS: Acetaminophen 325 MG Tab PO PRN (10:56)
[2023-03-21] MEDS: Polyethylene Glycol 3350 Powder 17 GM Packet PO PRN (11:02)
[2023-03-21] MEDS: atorvaSTATin 40 MG Tab PO SCH (21:05)
[2023-03-21] MEDS: Melatonin 3 MG Tab PO SCH (21:05)
[2023-03-21] MEDS: QUEtiapine 25 MG Tab PO SCH (21:06)
[2023-03-21] MEDS: traZODone 50 MG Tab PO SCH (21:06)
[2023-03-22] MEDS: Acetaminophen 325 MG Tab PO PRN (02:40)
[2023-03-22] MEDS: Pantoprazole 40 MG Tab.CR PO SCH (08:38)
[2023-03-22] MEDS: Levothyroxine 75 MCG Tab PO SCH (08:38)
[2023-03-22] MEDS: Multivitamins with Iron/Calcium/Folic Acid/Minerals Tab PO SCH (08:39)
[2023-03-22] MEDS: Aspirin 81 MG Tab.EC PO SCH (08:39)
[2023-03-22] MEDS: Formoterol/Mometasone 200-5 MCG 8.8 GM Inhaler IH SCH (08:39)
[2023-03-22] MEDS: Ticagrelor 90 MG Tab PO SCH (08:40)
[2023-03-22] MEDS: Sodium Chloride 1 GM Tab PO SCH (08:40)
[2023-03-22] MEDS: Venlafaxine 150 MG Cap.ER PO SCH (08:41)
[2023-03-22] MEDS: Cholecalciferol (Vitamin D3) 25 MCG Tab PO SCH (08:41)
[2023-03-22] MEDS: Docusate Sodium 100 MG Cap PO SCH (08:41)
[2023-03-22] MEDS: levETIRAcetam 500 MG Tab PO SCH (08:42)
[2023-03-22] MEDS: Lutein/Minerals/Vitamin C/Vitamin E Acetate Cap PO SCH (08:44)
[2023-03-22] MEDS: PHENobarbital 32.4 MG Tab PO SCH (08:48)
[2023-03-22] MEDS: Metoprolol Succinate 50 MG Tab.ER PO SCH (08:52)
[2023-03-22] MEDS: amLODIPine 10 MG Tab PO SCH (08:53)
[2023-03-22 11:02] VITALS: BP 131/80; PULSE 73
== END 2023-03-22 11:33 | disposition home health service (06) | DRG 57 ==
LOC: FB.MS 15:25
PROVIDERS: ADMIT Family Medicine; ATTEND Family Medicine
DX: I69.354 Hemiplegia and hemiparesis following cerebral infarction affecting left non-dominant side (principal); E87.1 Hypo-osmolality and hyponatremia; G93.40 Encephalopathy, unspecified; F33.1 Major depressive disorder, recurrent, moderate; F01.B11 Vascular dementia, moderate, with agitation; N30.00 Acute cystitis without hematuria; I11.0 Hypertensive heart disease with heart failure; E66.9 Obesity, unspecified; D64.9 Anemia, unspecified; E78.00 Pure hypercholesterolemia, unspecified; M35.08 Sjogren syndrome with gastrointestinal involvement; M06.9 Rheumatoid arthritis, unspecified; G40.909 Epilepsy, unspecified, not intractable, without status epilepticus; E03.9 Hypothyroidism, unspecified; J45.909 Unspecified asthma, uncomplicated; Z79.82 Long term (current) use of aspirin; B02.9 Zoster without complications; I50.9 Heart failure, unspecified; I25.2 Old myocardial infarction; G43.909 Migraine, unspecified, not intractable, without status migrainosus; Z90.710 Acquired absence of both cervix and uterus; Z98.890 Other specified postprocedural states; Z98.49 Cataract extraction status, unspecified eye; Z96.659 Presence of unspecified artificial knee joint; Z79.899 Other long term (current) drug therapy
CPT/HCPCS: 36415; 70450; 73030-LT; 80048; 81001; 85025; 87086; 87088; 87186; 93010; 96125-GN; 97110-GO; 97116-GP; 97129-GN; 97130-GN; 97161-GP; 97165-GO; 97530-GO; 97530-GP; 97535-GO; 99305; 99308; 99309; 99315; A9270-GY

== ENCOUNTER 2023-08-06 23:06 | Emergency (ER) | payer MEDICARE, OTHER ==
[2023-08-06] MEDS ORDERED: Ondansetron 4 MG Tab.DIS PO ONE (23:07)
[2023-08-06] MEDS ORDERED: Acetaminophen 500 MG Tab PO ONE (23:15)
[2023-08-06] MEDS ORDERED: Sodium Chloride 0.9% 1,000 ML IV ONE (23:16)
[2023-08-06] MEDS ORDERED: Ondansetron 4 MG/2 ML SDV IVPUSH ONE (23:16)
[2023-08-06 23:31] LABS: HEMATOCRIT 31.5 % (34.2-48.2); HEMOGLOBIN 10.1 g/dL (11.4-15.5); MEAN CORPUSCULAR HEMOGLOBIN 25.9 pg (23.9-33.9); MEAN CORPUSCULAR HGB CONC 31.9 g/dL (31.9-34.8); MEAN PLATELET VOLUME 6.4 fL (7.1-12.4); PLATELET COUNT,PLT 326 x10(3)uL (151-488); RED BLOOD CELL COUNT 3.89 x10(6)uL (3.60-5.20); RED CELL DISTRIBUTION WIDTH 17.9 % (12.3-16.5); WHITE BLOOD CELL COUNT,WBC 13.3 x10-3/uL (3.0-10.3)
[2023-08-06 23:35] LABS: BLOOD UREA NITROGEN,BUN 16 mg/dL (7-18); BUN/CREATININE RATIO 17.8 (9-20); CARBON DIOXIDE,CO2 24 mmol/L (21-32); CHLORIDE,CL 97 mmol/L (100-110); CREATININE 0.9 mg/dL (0.55-1.02); ESTIMATED GFR 65 mL/min (>60); GLUCOSE RANDOM 139 mg/dL (80-116); POTASSIUM,K 3.7 mmol/L (3.5-5.3); SODIUM,NA 130 mmol/L (135-145)
[2023-08-06 23:41] LABS: A/G RATIO 0.8; ALANINE AMINOTRANSFERASE,ALT 18 U/L (12-36); ALBUMIN 3.6 g/dL (3.2-4.6); ALKALINE PHOSPHATASE 148 IU/L (56-112); ASPARTATE AMNIOTRANSFERASE,AST 21 IU/L (5-25); BILIRUBIN TOTAL 0.3 mg/dL (0.1-1.3); PROTEIN TOTAL,TP 8.3 g/dL (6.0-8.0)
[2023-08-06 23:56] LABS: APPEARANCE,URINE CLEAR (CLEAR); BACTERIA,URINE RARE (NS); BILIRUBIN,URINE NEGATIVE (NEGATIVE); COLOR,URINE YELLOW (YELLOW); GLUCOSE,URINE NORMAL (NORMAL); KETONES,URINE NEGATIVE (NEGATIVE); LEUKOCYTE ESTERASE,URINE NEGATIVE (NEGATIVE); NITRITE,URINE NEGATIVE (NEGATIVE); OCCULT BLOOD,URINE NEGATIVE (NEGATIVE); PROTEIN,URINE 30 mg/dL (NEGATIVE); RBC,URINE 0-5 (0-5); SQUAMOUS EPITHELIAL CELLS,UR RARE (NS,R,O); UROBILINOGEN,URINE NORMAL (NEGATIVE); WBC,URINE 0-5 (0-5)
[2023-08-06 23:57] LABS: LYMPHOCYTES PERCENT MAN 3 % (13-37); MONOCYTES PERCENT MAN 3 % (4-12); SEG NEUTROPHILS PERCENT MAN 94 % (46-82)
[2023-08-07 00:03] LABS: CORONAVIRUS COVID-19 NAA NEGATIVE (NEGATIVE); INFLUENZA A NAA NEGATIVE (NEGATIVE); INFLUENZA B NAA NEGATIVE (NEGATIVE); RESPIRATORY SYNCYTIAL VIR NAA NEGATIVE (NEGATIVE)
[2023-08-07 02:08] VITALS: BP 132/70; PULSE 98
== END 2023-08-07 02:09 | disposition home or self-care (01) ==
LOC: FB.ED 23:06
DX: J06.9 Acute upper respiratory infection, unspecified (principal); E86.0 Dehydration; E87.1 Hypo-osmolality and hyponatremia; I11.0 Hypertensive heart disease with heart failure; E78.00 Pure hypercholesterolemia, unspecified; I50.9 Heart failure, unspecified; E03.9 Hypothyroidism, unspecified; Z20.822 Contact with and (suspected) exposure to COVID-19; Z79.82 Long term (current) use of aspirin; Z79.899 Other long term (current) drug therapy
CPT/HCPCS: 0241U; 36415; 71045; 80053; 81001; 83605; 84484; 85025; 96361; 96374; 99284; A9270; J2405; J7030; Q0162; C1758

== ENCOUNTER 2024-05-19 11:54 | Emergency (ER) | payer MEDICARE, OTHER ==
[2024-05-19] MEDS: Ketorolac 30 MG/ML SDV IM ONE (12:10)
[2024-05-19 12:24] LABS: HEMATOCRIT 32.3 % (34.2-48.2); HEMOGLOBIN 10.2 g/dL (11.4-15.5); MEAN CORPUSCULAR HEMOGLOBIN 24.1 pg (23.9-33.9); MEAN CORPUSCULAR HGB CONC 31.6 g/dL (31.9-34.8); MEAN CORPUSCULAR VOLUME 76.3 fL (76.7-100.5); MONOCYTES ABSOLUTE AUTO 1.3 x10-3/uL (0.3-1.0); MONOCYTES PERCENT AUTO 12.4 % (4.4-15.7); NEUTROPHILS ABSOLUTE AUTO 8.4 x10-3/uL (1.5-6.3); NEUTROPHILS PERCENT AUTO 78.6 % (30.8-76.2); PLATELET COUNT,PLT 467 x10(3)uL (151-488); RED CELL DISTRIBUTION WIDTH 18.5 % (12.3-16.5); WHITE BLOOD CELL COUNT,WBC 10.7 x10-3/uL (3.0-10.3)
[2024-05-19 12:25] LABS: BLOOD UREA NITROGEN,BUN 11 mg/dL (7-18); BUN/CREATININE RATIO 13.8 (9-20); CALCIUM 8.8 mg/dL (8.6-10.2); CARBON DIOXIDE,CO2 27 mmol/L (21-32); CHLORIDE,CL 91 mmol/L (100-110); CREATININE 0.8 mg/dL (0.55-1.02); EST CRCL DRUG DOSING (CG) 40.29 mL/min; ESTIMATED GFR 74 mL/min (>60); GLUCOSE RANDOM 136 mg/dL (80-116); POTASSIUM,K 3.2 mmol/L (3.5-5.3); SODIUM,NA 127 mmol/L (135-145)
[2024-05-19 12:33] LABS: RED BLOOD CELL COUNT 4.23 x10(6)uL (3.60-5.20)
[2024-05-19] MEDS ORDERED: Naloxone 0.4 MG/ML SDV IVPUSH PRN (12:33)
[2024-05-19] MEDS ORDERED: Sodium Chloride 0.9% 10 ML Syringe FLUSH PRN (12:34)
[2024-05-19] MEDS: fentaNYL 100 MCG/2 ML SDV IVPUSH PRN (12:43)
[2024-05-19 14:04] VITALS: BP 183/88; PULSE 76
== END 2024-05-19 13:40 | disposition other institution (70) ==
LOC: FB.ED 11:54
DX: S43.015A Anterior dislocation of left humerus, initial encounter (principal); I10 Essential (primary) hypertension; I25.2 Old myocardial infarction; E78.00 Pure hypercholesterolemia, unspecified; E03.9 Hypothyroidism, unspecified; J45.909 Unspecified asthma, uncomplicated; E66.9 Obesity, unspecified; Z90.710 Acquired absence of both cervix and uterus; Z79.899 Other long term (current) drug therapy; Z79.82 Long term (current) use of aspirin; W01.198A Fall on same level from slipping, tripping and stumbling with subsequent striking against other object, initial encounter
CPT/HCPCS: 23650; 36415; 73020-LT; 73030-LT; 80048; 85025; 96372; 96374; 99284; 99284-25; J1885; J3010

== ENCOUNTER 2025-03-22 16:03 | Emergency (ER) | payer MEDICARE, OTHER ==
[2025-03-22] MEDS ORDERED: Sodium Chloride 0.9% 10 ML Syringe FLUSH PRN (16:15)
[2025-03-22 16:34] LABS: BASOPHILS ABSOLUTE AUTO 0.0 x10-3/uL (0.0-0.1); BASOPHILS PERCENT AUTO 0.5 % (0.2-1.5); EOSINOPHILS ABSOLUTE AUTO 0.1 x10-3/uL (0.0-0.8); EOSINOPHILS PERCENT AUTO 1.7 % (0.6-8.1); LYMPHOCYTES ABSOLUTE AUTO 1.1 x10-3/uL (1.0-4.4); LYMPHOCYTES PERCENT AUTO 27.4 % (18.4-52.1); MEAN PLATELET VOLUME 6.3 fL (7.1-12.4); MONOCYTES ABSOLUTE AUTO 0.5 x10-3/uL (0.3-1.0); MONOCYTES PERCENT AUTO 13.0 % (4.4-15.7); NEUTROPHILS ABSOLUTE AUTO 2.3 x10-3/uL (1.5-6.3); NEUTROPHILS PERCENT AUTO 57.4 % (30.8-76.2); PLATELET COUNT,PLT 250 x10(3)uL (151-488); RED BLOOD CELL COUNT 3.38 x10(6)uL (3.60-5.20); RED CELL DISTRIBUTION WIDTH 13.7 % (12.3-16.5); WHITE BLOOD CELL COUNT,WBC 3.9 x10-3/uL (3.0-10.3)
[2025-03-22 16:43] LABS: BLOOD UREA NITROGEN,BUN 12 mg/dL (7-18); CARBON DIOXIDE,CO2 28 mmol/L (21-32); CHLORIDE,CL 104 mmol/L (100-110); CREATININE 0.8 mg/dL (0.55-1.02); ESTIMATED GFR 74 mL/min (>60); GLUCOSE RANDOM 91 mg/dL (80-116); POTASSIUM,K 3.1 mmol/L (3.5-5.3); SODIUM,NA 141 mmol/L (135-145)
[2025-03-22 16:49] LABS: A/G RATIO 0.7; ALANINE AMINOTRANSFERASE,ALT 12 U/L (12-36); ASPARTATE AMNIOTRANSFERASE,AST 20 IU/L (5-25); BILIRUBIN TOTAL 0.4 mg/dL (0.1-1.3); PROTEIN TOTAL,TP 7.2 g/dL (6.0-8.0)
[2025-03-22] MEDS: Potassium Chloride 20 MEQ Tab.ER PO STA (17:36)
[2025-03-22 18:08] LABS: GLUCOSE,URINE NORMAL (NORMAL); OCCULT BLOOD,URINE NEGATIVE (NEGATIVE)
[2025-03-22 18:10] LABS: APPEARANCE,URINE SLIGHTLY CLOUDY (CLEAR)
[2025-03-22 18:11] LABS: SQUAMOUS EPITHELIAL CELLS,UR FEW (NS,R,O)
[2025-03-22 18:42] VITALS: BP 151/89; PULSE 58
== END 2025-03-22 18:25 | disposition home or self-care (01) ==
LOC: FB.ED 16:03
DX: E86.0 Dehydration (principal); E87.6 Hypokalemia; D64.9 Anemia, unspecified; N39.0 Urinary tract infection, site not specified; I11.0 Hypertensive heart disease with heart failure; I50.9 Heart failure, unspecified; E78.00 Pure hypercholesterolemia, unspecified; E03.9 Hypothyroidism, unspecified; I25.2 Old myocardial infarction; Z79.82 Long term (current) use of aspirin; Z79.890 Hormone replacement therapy; Z79.899 Other long term (current) drug therapy
CPT/HCPCS: 36415; 80053; 81001; 85025; 87086; 96360; 99284; A9270; J7030